=== PATIENT | female | born 1975 ===

== ENCOUNTER 2020-09-01 08:02 | Outpatient (REF) | payer OTHER, SELFPAY ==
--- NOTE | 2020-09-01 08:08 | MM_ITS ---
EXAMINATION: MM SCREENING DIGITAL BREAST TOMOSYNTHESIS, BILATERAL CLINICAL INFORMATION: Screening. Asymptomatic. The lifetime risk of breast cancer based on the Tyrer-Cuzick Model is 15.1%. COMPARISON: Mammography: August 30, 2019 and studies dating back to July 21, 2015 TECHNIQUE: Digital breast tomosynthesis is performed in both the craniocaudal and mediolateral oblique views along with computer-aided detection (CAD). Synthesized 2D images are generated from the tomosynthesis. FINDINGS: There are scattered areas of fibroglandular density (ACR BI-RADS breast composition Category b). There are no significant masses, abnormal calcifications, or other abnormalities. IMPRESSION: There are no significant changes from prior study. ASSESSMENT: BI-RADS 1: Negative RECOMMENDATION: Routine annual mammography screening. This patient's information was entered into a reminder system with a target due date for their next mammogram.
== END 2020-09-01 08:03 | disposition home or self-care (01) ==
LOC: HO.MAMMO 08:02
PROVIDERS: PCP Internal Medicine; Visit Provider Internal Medicine
DX: Z12.31 Encounter for screening mammogram for malignant neoplasm of breast (principal)
CPT/HCPCS: 77063; 77067

== ENCOUNTER 2020-11-27 08:12 | Outpatient (REF) | payer OTHER, SELFPAY ==
--- NOTE | 2020-11-27 08:37 | XR_ITS ---
EXAMINATION: XR SHOULDER, RIGHT CLINICAL INFORMATION: No clinical history provided. COMPARISON: None TECHNIQUE: AP external rotation, Grashey, scapular Y, and axillary views of the right shoulder. FINDINGS: There are moderate degenerative changes at the right acromioclavicular joint with prominent marginal osteophytosis. Small subchondral cysts are noted. Normal alignment is maintained. No other abnormality. Alignment of the glenohumeral joint is normal. No soft tissue abnormality is demonstrated. XR/XR shoulder RT min 2V IMPRESSION: Moderate degenerative changes right acromioclavicular joint. No other abnormality.
[2020-11-27 08:44] LABS: MANUAL DIFF FLAG NO
[2020-11-27 08:48] LABS: Basophils Percent Auto 0.6 % (0-2); Eosinophils Absolute Auto 0.1 X10*3/uL (0.0-0.4); Eosinophils Percent Auto 2.9 % (0-4); Hematocrit 39.4 % (37-47); Hemoglobin 12.3 g/dl (12.0-16.0); Imm Gran Abs Auto 0.02 X10*3/uL (0.00-0.03); Imm Gran Pct Auto 0.4 % (0.0-0.4); Lymphocytes Absolute Auto 1.4 X10*3/uL (1.2-4.9); Lymphocytes Percent Auto 28.1 % (20-40); Mean Corpuscular HGB Conc 31.2 g/dl (31.0-35.0); Mean Corpuscular Hemoglobin 27.6 pg (27.0-33.0); Mean Corpuscular Volume 88.5 fL (80-98); Mean Platelet Volume 10.5 fL (9.4-12.3); Monocytes Absolute Auto 0.4 X10*3/uL (0.1-1.2); Monocytes Percent Auto 7.2 % (2-11); Neutrophils Percent Auto 60.8 % (45-73); Platelet Count 262 X10*3/uL (160-400); Red Blood Count 4.45 X10*6/uL (4.20-5.50); Red Cell Distribution Width 12.6 % (11.0-16.0); White Blood Count 4.9 X10*3/uL (4.8-10.8)
[2020-11-27 09:24] LABS: Alanine Aminotransferase 16 U/L (0-31); Albumin Level 4.2 g/dL (3.5-5.0); Alkaline Phosphatase 81 U/L (39-117); Anion Gap 11 (12-20); Aspartate Amino Transferase 14 U/L (5-31); Bilirubin Total 0.5 mg/dL (0.0-1.0); Blood Urea Nitrogen 18 mg/dL (9-16); Calcium 8.6 mg/dL (8.4-10.2); Carbon Dioxide 26 mmol/L (22-29); Chloride 106 mmol/L (96-108); Cholesterol 200 mg/dL; Estimated Glomerular Filt Rate > 60; Glucose Random 93 mg/dL (60-115); HDL Cholesterol 53 mg/dL; LDL Cholesterol Calculated 135 mg/dl; Potassium 4.6 mmol/l (3.3-5.1); Sodium 138 mmol/L (135-145); Total Protein 6.6 g/dL (6.5-8.0); Triglycerides 63 mg/dL
[2020-11-27 09:45] LABS: Free T4 (Free Thyroxine) 0.77 ng/dL (0.71-1.85); Thyroid Stimulating Hormone 6.93 uIU/mL (0.32-4.0); Vitamin D 25-OH Total 16.3 ng/mL (>30)
[2020-11-27 10:31] LABS: Folate 9.5 ng/mL (> or = 4.0); Vitamin B12 321 pg/mL (200-900)
== END 2020-11-27 08:13 | disposition home or self-care (01) ==
LOC: HO.LAB 08:12
PROVIDERS: PCP Internal Medicine; Visit Provider Internal Medicine
DX: G43.909 Migraine, unspecified, not intractable, without status migrainosus (principal); E78.00 Pure hypercholesterolemia, unspecified; E03.9 Hypothyroidism, unspecified
CPT/HCPCS: 36415; 73030; 80053; 80061; 82306; 82607; 82746; 84439; 84443; 85025

== ENCOUNTER → 2021-01-28 08:51 | Outpatient (BNVA) | payer OTHER, SELFPAY | PROVIDERS: PCP Internal Medicine; Visit Provider Advanced Practice Midwife ==

== ENCOUNTER 2021-09-12 07:17 | Outpatient (REF) | payer OTHER, SELFPAY ==
--- NOTE | ~2021-09-12 | MM_ITS ---
EXAMINATION: MM SCREENING DIGITAL BREAST TOMOSYNTHESIS, BILATERAL CLINICAL INFORMATION: Screening. Asymptomatic. The lifetime risk of breast cancer based on the Tyrer-Cuzick Model is 16%. COMPARISON: Mammography: 09/01/2020, 08/30/2019, 08/24/2018 TECHNIQUE: Digital breast tomosynthesis is performed in both the craniocaudal and mediolateral oblique views along with computer-aided detection (CAD). Synthesized 2D images are generated from the tomosynthesis. FINDINGS: There are scattered areas of fibroglandular density (ACR BI-RADS breast composition Category b). There are no significant masses, abnormal calcifications, or other abnormalities. Parenchymal pattern is similar to prior studies. No developing density. No significant changes. MM/MM tomosynthesis screening BI IMPRESSION: No mammographic evidence of malignancy. ASSESSMENT: BI-RADS 1: Negative RECOMMENDATION: Routine annual mammography screening. This patient's information was entered into a reminder system with a target due date for their next mammogram.
== END 2021-09-12 07:18 | disposition home or self-care (01) ==
LOC: HO.MAMMO 07:17
PROVIDERS: Visit Provider Internal Medicine
DX: Z12.31 Encounter for screening mammogram for malignant neoplasm of breast (principal)
CPT/HCPCS: 77063; 77067

== ENCOUNTER → 2022-01-19 13:52 | Outpatient (BNVA) | payer OTHER, SELFPAY | PROVIDERS: PCP Internal Medicine; Referring Provider Internal Medicine; Visit Provider Nurse Practitioner ==

== ENCOUNTER 2022-02-03 14:52 | Outpatient (REF) | payer OTHER, SELFPAY ==
[2022-02-04 11:11] LABS: BV Int Neg Control Negative (Negative); BV Int Pos Control Positive (Positive)
[2022-02-04 13:09] LABS: CT PCR NOT DETECTED (Not Detect.); NG PCR NOT DETECTED (Not Detect.)
[2022-02-09 05:46] LABS: HPV 16 RNA NOT DETECTED (NOT DETECTED); HPV mRNA E6/E7 rflx Detected (Not Detected)
== END 2022-02-03 14:53 | disposition home or self-care (01) ==
LOC: HO.LAB 14:52
PROVIDERS: Visit Provider Advanced Practice Midwife
DX: Z01.411 Encounter for gynecological examination (general) (routine) with abnormal findings (principal); N93.9 Abnormal uterine and vaginal bleeding, unspecified; N92.0 Excessive and frequent menstruation with regular cycle; Z20.2 Contact with and (suspected) exposure to infections with a predominantly sexual mode of transmission
CPT/HCPCS: 87480; 87491; 87510; 87591; 87624; 87625; 87660; 88142

== ENCOUNTER 2022-02-17 15:25 | Outpatient (REF) | payer OTHER, SELFPAY ==
--- NOTE | ~2022-02-17 | US_ITS ---
EXAMINATION: US PELVIS CLINICAL INFORMATION: Excessive and frequent menses. COMPARISON: Pelvic ultrasound 07/19/2018. TECHNIQUE: Ultrasound of the pelvis is performed using both transabdominal and transvaginal transducers along with Doppler. Transvaginal imaging is performed due to inadequate visualization transabdominally. FINDINGS: UTERUS: The uterus is anteverted and measures 8.4 x 4.9 x 5.8 cm. The double wall endometrial thickness is 1.2 cm. Of note, there is a hyperechoic oval-shaped mass in the endometrial cavity measuring 1.1 x 1.0 x 1.2 cm, which is new compared to the prior study and may represent a polyp. The uterus is smooth in contour and has normal myometrial echogenicity. No visible fibroid. Nabothian cysts are present in the cervix. ADNEXA: Both ovaries are visualized. There is normal color flow to the adnexa. There is no ovarian torsion. There is no pelvic ascites or fluid collection. Right ovary measures 3.1 x 1.5 x 1.5 cm for a volume of 3.8 mL and appears normal. Left ovary measures 3.5 x 2.0 x 3.6 cm for a volume of 13 mL and contains a small benign-appearing cyst measuring 1.5 x 1.6 x 2.1 cm. US/US pelvic and transvaginal IMPRESSION: Polypoid mass in the endocervical canal measuring 1.2 cm. This could be confirmed with either hysterosonography or hysteroscopy. This is new when compared to the prior ultrasound from 07/19/2018.
== END 2022-02-17 15:26 | disposition home or self-care (01) ==
LOC: HO.HMGCX 15:25
PROVIDERS: PCP Internal Medicine; Visit Provider Advanced Practice Midwife
DX: N92.0 Excessive and frequent menstruation with regular cycle (principal)
CPT/HCPCS: 76830; 76856

== ENCOUNTER 2022-02-25 07:04 | Outpatient (REF) | payer OTHER, SELFPAY ==
[2022-02-25 08:02] LABS: Hematocrit 40.8 % (37.0-47.0); Mean Corpuscular HGB Conc 31.9 g/dl (31.0-35.0); Mean Corpuscular Hemoglobin 27.5 pg (27.0-33.0); Mean Corpuscular Volume 86.4 fL (80.0-98.0); Mean Platelet Volume 11.4 fL (9.4-12.3); Platelet Count 307 X10*3/uL (160-400); Red Blood Count 4.72 X10*6/uL (4.20-5.50); Red Cell Distribution Width 13.1 % (11.0-16.0); White Blood Count 5.7 X10*3/uL (4.8-10.8)
[2022-02-25 08:22] LABS: Alanine Aminotransferase 15 U/L (0-31); Albumin Level 4.5 g/dL (3.5-5.0); Alkaline Phosphatase 89 U/L (39-117); Anion Gap 13 (12-20); Aspartate Amino Transferase 18 U/L (5-31); Bilirubin Total 1.3 mg/dL (0.0-1.0); Blood Urea Nitrogen 15 mg/dL (9-16); C Reactive Protein 0.67 mg/dL (< or = 0.50); Calcium 9.6 mg/dL (8.4-10.2); Carbon Dioxide 23 mmol/L (22-29); Chloride 107 mmol/L (96-108); Cholesterol 182 mg/dL; Estimated Glomerular Filt Rate 55; Glucose Random 102 mg/dL (60-115); HDL Cholesterol 45 mg/dL; LDL Cholesterol Calculated 129 mg/dl; Potassium 4.4 mmol/L (3.3-5.1); Sodium 139 mmol/L (135-145); Total Protein 7.4 g/dL (6.5-8.0); Triglycerides 43 mg/dL
[2022-02-25 08:39] LABS: MANUAL DIFF FLAG NO
[2022-02-25 08:41] LABS: Basophils Percent Auto 0.7 % (0-2); Eosinophils Absolute Auto 0.1 X10*3/uL (0.0-0.4); Eosinophils Percent Auto 2.1 % (0-4); Free T4 (Free Thyroxine) 0.95 ng/dL (0.71-1.85); Hematocrit 40.8 % (37.0-47.0); Hemoglobin 12.9 g/dl (12.0-16.0); Imm Gran Abs Auto 0.02 X10*3/uL (0.00-0.03); Imm Gran Pct Auto 0.4 % (0.0-0.4); Lymphocytes Absolute Auto 1.2 X10*3/uL (1.2-4.9); Lymphocytes Percent Auto 20.6 % (20-40); Mean Corpuscular HGB Conc 31.6 g/dl (31.0-35.0); Mean Corpuscular Hemoglobin 27.1 pg (27.0-33.0); Mean Corpuscular Volume 85.7 fL (80.0-98.0); Mean Platelet Volume 11.6 fL (9.4-12.3); Monocytes Absolute Auto 0.5 X10*3/uL (0.1-1.2); Monocytes Percent Auto 8.2 % (2-11); Neutrophils Absolute Auto 3.8 x10*3/uL (2.0-8.3); Platelet Count 310 X10*3/uL (160-400); Red Blood Count 4.76 X10*6/uL (4.20-5.50); Thyroid Stimulating Hormone 3.66 uIU/mL (0.32-4.0); White Blood Count 5.6 X10*3/uL (4.8-10.8)
[2022-02-25 08:44] LABS: TSH reflex Free T4 3.75 uIU/mL (0.32-4.0)
[2022-02-25 08:45] LABS: Erythrocyte Sedimentation Rate 8 MM/HR (0-20)
[2022-02-25 10:12] LABS: Vitamin D 25-OH Total 23.8 ng/mL (>30)
[2022-02-27 08:56] LABS: Folate 18.9 ng/mL (> or = 4.0); Vitamin B12 741 pg/mL (200-900)
== END 2022-02-25 07:05 | disposition home or self-care (01) ==
LOC: HO.LAB 07:04
PROVIDERS: Absent Provider Internal Medicine; PCP Internal Medicine; Visit Provider Advanced Practice Midwife
DX: N92.0 Excessive and frequent menstruation with regular cycle (principal); G43.909 Migraine, unspecified, not intractable, without status migrainosus; E78.00 Pure hypercholesterolemia, unspecified
CPT/HCPCS: 36415; 80053; 80061; 82306; 82607; 82746; 84439; 84443; 85025; 85027; 85652; 86140

== ENCOUNTER → 2022-03-03 15:54 | Outpatient (BNVA) | payer OTHER, SELFPAY | PROVIDERS: Visit Provider Advanced Practice Midwife | DX: Z13.89 Encounter for screening for other disorder (principal) ==

== ENCOUNTER 2022-03-10 13:50 | Outpatient (REF) | payer OTHER, SELFPAY ==
[2022-03-17 03:36] LABS: HPV 16 RNA NOT DETECTED (NOT DETECTED); HPV mRNA E6/E7 rflx Detected (Not Detected)
== END 2022-03-10 13:51 | disposition home or self-care (01) ==
LOC: HO.LAB 13:50
PROVIDERS: PCP Internal Medicine; Visit Provider Advanced Practice Midwife
DX: Z01.411 Encounter for gynecological examination (general) (routine) with abnormal findings (principal); Z11.51 Encounter for screening for human papillomavirus (HPV); N92.0 Excessive and frequent menstruation with regular cycle; N84.1 Polyp of cervix uteri; Z71.2 Person consulting for explanation of examination or test findings
CPT/HCPCS: 81025; 87624; 87625; 88142

== ENCOUNTER → 2022-04-05 15:34 | Outpatient (BNVA) | payer OTHER, SELFPAY | PROVIDERS: PCP Internal Medicine; Visit Provider Obstetrics & Gynecology | DX: N93.9 Abnormal uterine and vaginal bleeding, unspecified (principal) ==

== ENCOUNTER 2022-04-12 14:19 | Outpatient (REF) | payer OTHER, SELFPAY | END 2022-04-12 14:20 | disposition home or self-care (01) | LOC: HO.LAB 14:19 | PROVIDERS: PCP Internal Medicine; Visit Provider Obstetrics & Gynecology | DX: R87.810 Cervical high risk human papillomavirus (HPV) DNA test positive (principal); Z32.02 Encounter for pregnancy test, result negative | CPT/HCPCS: 57454; 81025; 88305; 88342; 88360 ==

== ENCOUNTER → 2022-04-18 15:20 | Outpatient (BNVA) | payer OTHER, SELFPAY | PROVIDERS: PCP Internal Medicine; Visit Provider Obstetrics & Gynecology | DX: N93.9 Abnormal uterine and vaginal bleeding, unspecified (principal) ==

== ENCOUNTER 2022-05-05 06:29 | Day surgery (SDC) | payer OTHER, SELFPAY ==
[2022-04-26 19:06] VITALS: BMI 33.6
--- NOTE | 2022-05-03 14:07 | HO.ANESPROP2 ---
HPI - Anesthesia Eval Consult details Narrative: 46yo F for D&C Hysteroscopy,poss polypectomy/myomectomy and leep, PMFSH Active Problems Active Problems: All Active Problems (Updated 04/18/22 @ 18:17 by Gordon Ordoñez MD) REN III (cervical intraepithelial neoplasia grade III) with severe dysplasia (Acute) Cervical high risk HPV (human papillomavirus) test positive (Acute) Abnormal uterine bleeding (Acute) Ear congestion (Acute) Allergic reaction (Acute) Colon cancer screening (Acute) Shoulder pain, right (Acute) Migraine (Acute) Annual physical exam (Acute) Obesity (BMI 30-39.9) (Acute) Hypothyroid (Acute) Hypercholesterolemia (Acute) GERD (gastroesophageal reflux disease) (Acute) Past Medical History Medical History BRCA negative GERD (gastroesophageal reflux disease) HPV test positive Hypercholesterolemia Hypothyroid Insomnia Migraine Obesity (BMI 30-39.9) Polycystic kidney disease Vitamin D deficiency Family History Family History Father Cancer Diabetes Hypertension Mother Kidney disease Hypertension Breast cancer, Onset Age: 70 Sister Colon cancer Maternal Aunt Breast cancer Kidney disease Throat cancer Gastric cancer Surgical History Surgical History No pertinent past surgical history Social History Social History Housing: Apartment Alcohol intake: never Patient Tobacco Use Status: Never used Tobacco e-Cigarette/Vaping Use: Never Used Second Hand Smoke Exposure: No Current occupational status: employed Meds Allergies Allergy/AdvReac Type Severity Reaction Status Date / Time bee pollen [BEE STINGS] Allergy Severe ANAPHYLAXIS Verified 04/18/22 15:31 kiwi [KIWI] Allergy Intermediate HIVES Verified 04/18/22 15:31 Exam Exam Date and Time: May 03, 2022 1407 Height,Weight and Vital Signs: Height 5 ft 4 in Weight 88.904 kg Pertinent Lab Results Pertinent Lab Results: Laboratory Tests 02/25/22 02/25/22 07:17 07:17 WBC 5.6 Hgb 12.9 Hct 40.8 Plt Count 310 Sodium 139 Potassium 4.4 Chloride 107 Carbon Dioxide 23 BUN 15 Creatinine 1.08 Assessment and Plan Assessment Anesthesia Assessment: Chart Reviewed
[2022-05-05] VITALS (9 sets, daily range): BP systolic 130–178; BP diastolic 69–102; PULSE 53–76; RESP 10–18; TEMP 36.6–36.8; O2SAT 96–100
[2022-05-05 06:55] LABS: UPreg QC Valid YES; Urine Pregnancy NEGATIVE (NEGATIVE)
[2022-05-05] MEDS: Lactated Ringers 1,000 ML 100 ML IVCONT (07:01)
--- NOTE | 2022-05-05 07:14 | P.CONAN_ITS ---
[facility] Active Problems Active Problems: All Active Problems (Updated 04/18/22 @ 18:17 by Gordon Ordoñez MD) Migraine (Acute) GERD (gastroesophageal reflux disease) (Acute) Hypercholesterolemia (Acute) Hypothyroid (Acute) Obesity (BMI 30-39.9) (Acute) Annual physical exam (Acute) Shoulder pain, right (Acute) Colon cancer screening (Acute) Allergic reaction (Acute) Ear congestion (Acute) Abnormal uterine bleeding (Acute) Cervical high risk HPV (human papillomavirus) test positive (Acute) REN III (cervical intraepithelial neoplasia grade III) with severe dysplasia (Acute) Past Medical History Medical History BRCA negative HPV test positive Insomnia Polycystic kidney disease Vitamin D deficiency Patient : No Family History Family History Father Cancer Diabetes Hypertension Mother Kidney disease Hypertension Breast cancer, Onset Age: 70 Sister Colon cancer Maternal Aunt Breast cancer Kidney disease Throat cancer Gastric cancer Family history of problems with anesthesia: No Surgical History Surgical History (Updated 05/05/22 @ 06:52 by Beckie Turner RN) Hx of colonoscopy No pertinent past surgical history History of Problems with Anesthesia: No Social History Social History Housing: Apartment Alcohol intake: never Patient Tobacco Use Status: Never used Tobacco e-Cigarette/Vaping Use: Never Used Second Hand Smoke Exposure: No Use of substances other than those prescribed or required for medical reasons: No Are you DNR?: No Advance Directives: No Advance Directives Information Provided: No Advance Directives on File: No Recently lost weight without trying: No Nutrition Risks: No Nutritional Risk Current occupational status: employed Meds Allergies Allergy/AdvReac Type Severity Reaction Status Date / Time bee pollen [BEE STINGS] Allergy Severe ANAPHYLAXIS Verified 04/18/22 15:31 kiwi [KIWI] Allergy Intermediate HIVES Verified 04/18/22 15:31 Active Medications: Current Medications Lactated Ringer's (Lr) 1,000 mls @ 100 mls/hr IVCONT .Q10H KARINA Last Admin: 05/05/22 07:01 Dose: 100 mls/hr Exam Exam Date and Time: May 05, 2022 0714 Height,Weight and Vital Signs: Height 5 ft 4 in Weight 88.904 kg Pertinent Lab Results Pertinent Lab Results: Laboratory Tests 05/05/22 06:30 Urine Test NEGATIVE Airway Mallampati Class: II TM Dist: >3cm Neck ROM: Full Assessment and Plan Final Anesthetic Review Family History of Problems with Anesthesia: No History of Problems with Anesthesia: No NPO: Yes Final Preanesthetic Review: No Changes in Pt Med Stat, Meds/Allgs Chart Review ed, Consent Obtained/Reviewed and Anes Risks/Benef Reviewed Anesthetic Plan Anesthetic Plan: GA Disposition: Standard PACU
--- NOTE | 2022-05-05 07:37 | MHC.SHP ---
Pre-Procedural Eval Section A Date of Service: 05/05/22 The patient is an INPATIENT: No Changes since office visit: No Cold of Flu in the past 2 weeks, No New Medical Problems, No Changes in Medication and No Patient answered all questions The History & Physical has been completed within 30 days and I have reviewed it.: Yes Section B Chief Complaint: Carcinoma in situ of cervix,abnormal uterine Allergies: Allergies Allergy/AdvReac Type Severity Reaction Status Date / Time bee pollen [BEE STINGS] Allergy Severe ANAPHYLAXIS Verified 04/18/22 15:31 kiwi [KIWI] Allergy Intermediate HIVES Verified 04/18/22 15:31 Plan Diagnosis/Plan: Unchanged I have reviewed the history and physical and performed a pertinent physical examination on my patient. No changes have occurred unless specified.
--- NOTE | 2022-05-05 07:54 | PC.NURSE ---
patient feeling calmer. most recent bp 147/98
--- NOTE | 2022-05-05 09:13 | PM.OP ---
Brief Operative Note Date of Service: 05/05/22 Pre-op diagnosis: Abnormal uterine bleeding, REN 2-3 Post-op diagnosis: same Procedure: Hysteroscopy D&C, LEEP CONE with post CONE ECC Surgeon: Gordon Ordoñez MD Anesthesia: local and other (Paracervical block) Was an Videotape Sales Representative used for this Procedure?: No Estimated blood loss (mL): 0 Pathology: other ( cervical conewith 06:00 o'clock suture+post deeper Cerv lip, Endocx, Post cone ECC) Condition: stable Disposition: other (Home)
--- NOTE | 2022-05-05 09:15 | W.PM.OPN ---
Operative Note Operative Note Date of Service: 05/05/22 Narrative: Preop diagnosis: Abnormal uterine bleeding, REN 2-3 Operation: hysteroscopy D&C, LEEP Cone with post cone ECC Post op diagnosis: same Anesthesia: mac Complications: none Pathology: cervical cone with 06:00 o'clock sutureand Posterior deeper cervical lip with endocervix & post cone ECC QBL: minimal Procedure: The patient was put in a dorsal lithotomy position. The cervix is assessed using the colposcope with acetic acid , the lesions were seen, and at least 1 cm of the squamocolumnar junction was observed. 25 x 15 mm size loop was selected based upon the diameter of the lesion. Lugol solution was used to outline the lesions and area of the transformation zone order to be removed 10 cc of xylocaine with epinephrine were injected submucosally into the surface of the cervix (ectocervix) at the 3, 6, 9, and 12 o'clock positions. The electrosurgical generator is set at 30 to 40 eng on blend 1. The loop is carefully passed simultaneously around and under the transformation zone, in order to ensure excising it making sure the lesion is at least 5 mm far from the specimen margins . The loop was allowed to glide through the cervix from one side to the other, allowing the cutting current to divide the tissue. Since the lesion is at 04:00 o'clock, a deeper 2nd pass of the posterior cervical lip was excised & an endo cervical excision was performed next. An endo cervical curettage is performed following completion of excision, and hemostasis is obtained with a Ball electrode or regular tip cautery. Next, the anterior lip of the cervix was grasped with a single tooth tenaculum. The cervix was dilated up to 5 mm, then the scope was inserted in the patient's uterus. Inspection revealed normal uterine cavity, the scope was pulled out next from the patient's uterine cavity, this was followed by sharp curettings with moderate amount of tissues retrieved. At the end of the procedure, all instruments were taken out of the patient uterine and vaginal cavity. The single tooth tenaculum was removed and homeostasis was assured using pressure. Monsel's solution was applied to the cone bed. The patient tolerated the procedure well and was transferred to the PACU in a stable condition. All instruments were taken out of the patient's vaginal cavity. the patient tolerated the procedure well and was discharged home with the following instructions: call if temperature is above 100.4, vaginal bleeding, abdominal pain or nausea or vomiting. Follow-up in the office in 2 weeks for postop visit
[2022-05-05] MEDS: oxyCODONE HCl Immed Release 5 MG TABLET PO (09:59)
== END 2022-05-05 11:17 | disposition home or self-care (01) ==
PROVIDERS: Nurse Practitioner; PCP Internal Medicine; Visit Provider Obstetrics & Gynecology
PROC: 0UDB8ZZ Extraction of Endometrium, Via Natural or Artificial Opening Endoscopic (ICD-10-PCS; CPT 58558; principal; 2022-05-05 08:30)
DX: D06.9 Carcinoma in situ of cervix, unspecified (principal); N93.9 Abnormal uterine and vaginal bleeding, unspecified; R87.810 Cervical high risk human papillomavirus (HPV) DNA test positive; Q61.3 Polycystic kidney, unspecified; E03.9 Hypothyroidism, unspecified; E55.9 Vitamin D deficiency, unspecified; G43.909 Migraine, unspecified, not intractable, without status migrainosus; G47.00 Insomnia, unspecified; E66.9 Obesity, unspecified; Z68.37 Body mass index [BMI] 37.0-37.9, adult; Z79.899 Other long term (current) drug therapy
CPT/HCPCS: 57461; 81025; 88305; 88307; 88341; 88342; 88360; J1100; J1885; J2250; J2405; J3010

== ENCOUNTER 2022-09-20 07:19 | Outpatient (REF) | payer OTHER, SELFPAY ==
--- NOTE | ~2022-09-20 | MM_ITS ---
EXAMINATION: MM SCREENING DIGITAL BREAST TOMOSYNTHESIS, BILATERAL CLINICAL INFORMATION: Screening. Asymptomatic. Family history breast cancer, mother. COMPARISON: Mammography: 09/12/2021, 09/01/2020, 08/30/2019 TECHNIQUE: Digital breast tomosynthesis is performed in both the craniocaudal and mediolateral oblique views along with computer-aided detection (CAD). Synthesized 2D images are generated from the tomosynthesis. FINDINGS: There are scattered areas of fibroglandular density (ACR BI-RADS breast composition Category b). Parenchymal pattern is similar to prior studies and there is no interval mass or architectural abnormality or developing density. The axilla and skin contours are unremarkable. No abnormal calcifications on the right. Left breast has fine grouped calcifications anterior 12:30 representing change from prior studies. Patient will be recalled for additional magnification views. MM/MM tomosynthesis screening BI IMPRESSION: Left: -Fine grouped calcifications anterior 12:30. Right: -No mammographic evidence of malignancy. ASSESSMENT: BI-RADS 0: Incomplete - Need Additional Imaging Evaluation RECOMMENDATION: 1. Additional views of the left breast (magnification CC, magnification ML). 2. Radiology department staff will contact the patient for additional imaging. This patient's information was entered into a reminder system with a target due date for their next mammogram.
== END 2022-09-20 07:20 | disposition home or self-care (01) ==
LOC: HO.MAMMO 07:19
PROVIDERS: PCP Internal Medicine; Visit Provider Internal Medicine
DX: Z12.31 Encounter for screening mammogram for malignant neoplasm of breast (principal)
CPT/HCPCS: 77063; 77067

== ENCOUNTER 2022-09-22 08:16 | Outpatient (REF) | payer OTHER, SELFPAY ==
--- NOTE | ~2022-09-22 | MM_ITS ---
EXAMINATION: MM DIAGNOSTIC DIGITAL MAMMOGRAPHY, LEFT CLINICAL INFORMATION: Calcifications. COMPARISON: Mammography: 09/20/2022 and studies dating back to 07/21/2015. TECHNIQUE: Digital mammography was performed in the following views: Spot magnification views in craniocaudal and 90 degree mediolateral views. FINDINGS: There are scattered areas of fibroglandular density (ACR BI-RADS breast composition Category b). Calcifications within the superior aspect of the left breast approximately 5 cm from the nipple are indeterminate in appearance. Recommend stereotactic core biopsy of these calcifications. Results are discussed with the patient at time of visit. MM/MM added views LT IMPRESSION: Indeterminate calcifications of the left breast for which stereotactic core biopsy is recommended. ASSESSMENT: BI-RADS 4: Suspicious RECOMMENDATION: Stereotactic core biopsy left breast. This patient's information was entered into a reminder system with a target due date for their next mammogram. Report called to Milagro at the referring provider's office.
== END 2022-09-22 08:17 | disposition home or self-care (01) ==
LOC: HO.MAMMO 08:16
PROVIDERS: PCP Internal Medicine; Visit Provider Internal Medicine
DX: R92.1 Mammographic calcification found on diagnostic imaging of breast (principal)
CPT/HCPCS: 77065

== ENCOUNTER 2022-09-27 09:29 | Outpatient (REF) | payer OTHER, SELFPAY ==
--- NOTE | ~2022-09-27 | MM_ITS ---
EXAMINATION: STEREOTACTIC TOMOSYNTHESIS-GUIDED VACUUM-ASSISTED BREAST BIOPSY, LEFT SPECIMEN RADIOGRAPH, LEFT POST PROCEDURE DIGITAL MAMMOGRAM, LEFT CLINICAL INFORMATION: Calcifications anterior upper left breast for stereotactic sampling. Family history breast cancer, mother. COMPARISON: Mammography 09/22/2022, 09/20/2022. TECHNIQUE/PROCEDURE: Informed consent was obtained from the patient after discussion of the benefits, risks, and alternatives to biopsy today. Patient appeared to understand. Gave opportunity for questions. Patient signed consent form. BIOPSY TABLE: Xquva Affirm Prone Biopsy System. LESION: Grouped calcifications anterior upper left breast. LOCAL ANESTHESIA: 8 mL carbonated 1% lidocaine; 10 mL 2% lidocaine with epinephrine. DERMATOTOMY: Single skin tierney dermatotomy performed. NEEDLE: Purkinjeiva 9-gauge vacuum assisted core biopsy device. APPROACH: Craniocaudal. TARGETING: Combination of digital breast tomosynthesis and stereotactic digital mammography used for targeting. CORES: 5. CLIP: Rail [employer] T-shaped marker. SPECIMEN RADIOGRAPH: Specimen radiograph is taken in separate room using digital mammography. The index calcifications are in the excised cores. There are at least 5 calcifications grouped in one of the cores. POST PROCEDURE UNILATERAL DIGITAL MAMMOGRAM: The post biopsy mammogram is performed in separate room using separate digital mammography equipment from the biopsy procedure. CC and ML views are obtained. There are scattered areas of fibroglandular density (breast composition category: b). The clip marker is in position. The calcifications are markedly decreased at the biopsy site and no longer clearly visualized. No gross hematoma. The patient tolerated the procedure well. No immediate complications. Home instructions reviewed with the patient. Final pathology results are pending. MM/MM stereotactic biopsy LT IMPRESSION: 1. Digital tomosynthesis-guided core biopsy left breast with clip placement. 2. Specimen radiograph taken and post procedure mammogram. There is satisfactory positioning of the biopsy clip. 3. Final pathology results pending. An addendum report will be issued.
[2022-09-27] MEDS: Lidocaine HCl 1 % 20 ML VIAL 9 ML SUBCUT (10:47)
[2022-09-27] MEDS: Sodium Bicarbonate 8.4% 50 MEQ/50 ML VIAL SUBCUT (10:50)
[2022-09-27] MEDS: Lidocaine HCl 2%/Epi 1:100,000 20 ML VIAL 10 ML INFILTRATI (10:53)
== END 2022-09-27 09:30 | disposition home or self-care (01) ==
LOC: HO.MAMMO 09:29
PROVIDERS: PCP Internal Medicine; Visit Provider Surgery
DX: R92.1 Mammographic calcification found on diagnostic imaging of breast (principal)
CPT/HCPCS: 19081; 88305; A4648

== ENCOUNTER 2023-02-09 15:07 | Outpatient (REF) | payer OTHER, SELFPAY ==
[2023-02-10 05:24] LABS: CT PCR NOT DETECTED (Not Detect.); NG PCR NOT DETECTED (Not Detect.)
[2023-02-14 05:19] LABS: HPV mRNA E6/E7 rflx Not Detected (Not Detected)
== END 2023-02-09 15:08 | disposition home or self-care (01) ==
LOC: HO.LNP 15:07
PROVIDERS: PCP Internal Medicine; Visit Provider Advanced Practice Midwife
DX: Z01.419 Encounter for gynecological examination (general) (routine) without abnormal findings (principal); Z11.51 Encounter for screening for human papillomavirus (HPV); Z20.2 Contact with and (suspected) exposure to infections with a predominantly sexual mode of transmission; D06.9 Carcinoma in situ of cervix, unspecified
CPT/HCPCS: 0353U; 87624; 88142

== ENCOUNTER → 2023-03-07 07:42 | Outpatient (BNVA) | payer OTHER, SELFPAY | PROVIDERS: PCP Internal Medicine; Visit Provider Advanced Practice Midwife | DX: Z13.89 Encounter for screening for other disorder (principal) ==

== ENCOUNTER 2023-03-08 13:31 | Outpatient (REF) | payer OTHER, SELFPAY | END 2023-03-08 13:32 | disposition home or self-care (01) | LOC: HO.LAB 13:31 | PROVIDERS: PCP Internal Medicine; Visit Provider Advanced Practice Midwife | DX: Z30.09 Encounter for other general counseling and advice on contraception (principal); R87.619 Unspecified abnormal cytological findings in specimens from cervix uteri; Z87.42 Personal history of other diseases of the female genital tract | CPT/HCPCS: 58100; 81025; 88305 ==

== ENCOUNTER → 2023-03-16 07:44 | Outpatient (BNVA) | payer OTHER, SELFPAY | PROVIDERS: PCP Internal Medicine; Visit Provider Advanced Practice Midwife ==

== ENCOUNTER 2023-08-18 07:16 | Outpatient (REF) | payer OTHER, SELFPAY | END 2023-08-18 07:17 | disposition home or self-care (01) | LOC: HO.LAB 07:16 | PROVIDERS: PCP Internal Medicine; Visit Provider Internal Medicine | DX: E03.9 Hypothyroidism, unspecified (principal); E78.00 Pure hypercholesterolemia, unspecified; E55.9 Vitamin D deficiency, unspecified | CPT/HCPCS: 36415; 80053; 80061; 82306; 82607; 82746; 84439; 84443; 85025 ==

== ENCOUNTER 2023-09-27 07:25 | Outpatient (REF) | payer OTHER, SELFPAY ==
--- NOTE | ~2023-09-27 | MM_ITS ---
EXAMINATION: MM SCREENING DIGITAL BREAST TOMOSYNTHESIS, BILATERAL CLINICAL INFORMATION: Screening. Asymptomatic. COMPARISON: Mammography: 09/20/2022, 09/12/2021, 09/01/2020, 08/30/2019, 08/24/2018 TECHNIQUE: Digital breast tomosynthesis is performed in both the craniocaudal and mediolateral oblique views along with computer-aided detection (CAD). Synthesized 2D images are generated from the tomosynthesis. FINDINGS: There are scattered areas of fibroglandular density (ACR BI-RADS breast composition Category b). Post benign biopsy clip upper outer left breast anterior one third. There are no suspicious masses, suspicious grouped calcifications, or areas of architectural distortion in either breast. The parenchymal pattern is stable from prior exams. MM/MM tomosynthesis screening BI IMPRESSION: No mammographic evidence of malignancy. Stable benign findings. ASSESSMENT: BI-RADS BI-RADS 2 - Benign Findings RECOMMENDATION: Routine annual mammography screening. 1 year F/U This examination should not preclude the clinical evaluation of a suspicious palpable abnormality. This patient's information was entered into a reminder system with a target due date for their next mammogram.
== END 2023-09-27 07:26 | disposition home or self-care (01) ==
LOC: HO.MAMMO 07:25
PROVIDERS: PCP Internal Medicine; Visit Provider Internal Medicine
DX: Z12.31 Encounter for screening mammogram for malignant neoplasm of breast (principal)
CPT/HCPCS: 77063; 77067

== ENCOUNTER → 2023-09-27 07:30 | Outpatient (BNV) | payer OTHER, SELFPAY | PROVIDERS: PCP Internal Medicine; Visit Provider Radiology Diagnostic Radiology | DX: Z12.31 Encounter for screening mammogram for malignant neoplasm of breast (principal) | CPT/HCPCS: 77063; 77067 ==

== ENCOUNTER 2023-11-30 14:47 | Outpatient (AMB) | payer OTHER, SELFPAY ==
--- NOTE | 2023-11-30 14:59 | MHC.PC.OV ---
Vital Signs 11/30/23 15:04 Height 5 ft 4 in Weight 196 lb 6 oz BMI 33.7 BP 158/102 H Blood Pressure Location Lt brachial Position Sitting Pulse 74 Pulse Source Pulse Oximeter Pulse Oximetry (%) 98 Oxygen Delivery Method Room Air Intake Visit Reasons: Annual Exam Intake Note: Patient is here today for a physical. Towel Sorter Required: No Accompanied by: Self / Same As Patient Allergies bee pollen [BEE STINGS] Allergy (Severe, Verified 11/30/23 15:05) ANAPHYLAXIS kiwi [KIWI] Allergy (Intermediate, Verified 11/30/23 15:05) HIVES Medication List - Last Reconciled 11/30/23 by Jay Fregoso MD [email or web address] extract mg PO blood pressure monitor (Blood Pressure Kit) As directed epinephrine (EpiPen 2-Mukul) 0.3 mg (0.3 mL) IM Q4H PRN 90 days hydrochlorothiazide 12.5 mg PO QAM levothyroxine 25 mcg PO DAILY multivitamin 1 tab PO DAILY peg 3350-electrolytes 236-22.74-6.74 -5.86 gram (Golytely) 240 mL PO Q10M 1 day sumatriptan succinate (Imitrex) 50 mg PO QD PRN; Tobacco use date assessed: 11/30/23 Dental Screening Dental Screen Date: 11/30/23 Did you have a dental visit in the last 12 months?: No Did you have a dental problem in the last 6 months where you did not have access to dental care?: No Was dental information given to patient?: No (No Dental Insurance ) HPI Annual Exam HPI Details 48-year-old obese female with hypothyroidism hypercholesterolemia GERD migraine coming in for physical exam last seen in November last year. Concern about an elevated blood pressure. Patient's colonoscopy is due mammogram is January 2023. [facility] Medical History (Updated 11/30/23 @ 19:07 by Jay Fregoso MD) Unexplained endometrial cells on cervical cytology Heavy menstrual bleeding Abnormal Pap smear of cervix Family history of breast cancer Breast calcification, left BRCA negative Obesity (BMI 30-39.9) Hypothyroid Hypercholesterolemia Insomnia GERD (gastroesophageal reflux disease) HPV test positive Vitamin D deficiency Polycystic kidney disease Migraine Surgical History Hx of dilation and curettage Hx of colonoscopy Family History Father Cancer Diabetes Hypertension Mother Kidney disease Hypertension Breast cancer, Onset Age: 70 Sister Colon cancer, Onset Age: 40 Maternal Aunt Breast cancer Kidney disease Throat cancer Gastric cancer Maternal Aunt Breast cancer Social History Household Members: Significant Other Housing: House Alcohol intake: never Patient Tobacco Use Status: Never used Tobacco e-Cigarette/Vaping Use: Never Used Second Hand Smoke Exposure: No service: No Current occupational status: employed Current occupation: [email or web address] Sexual orientation: Straight/Heterosexual Gender identity: Female Cognitive needs: No Hearing needs: No Vision needs: Yes Female Reproductive History Menstrual Age of Menarche: 12 Questionnaire PHQ-9 Over the last 2 weeks, how often have you been bothered by any of the following problems? 1. Little interest or pleasure in doing things: not at all 2. Feeling down, depressed, or hopeless: not at all 3. Trouble falling or staying asleep, or sleeping too much: not at all 4. Feeling tired or having little energy: not at all 5. Poor appetite or overeating: not at all 6. Feeling bad about yourself - or that you are a failure or have let yourself or your family down: not at all 7. Trouble concentrating on things, such as reading the newspaper or watching television: not at all 8. Moving or speaking so slowly that other people could have noticed. Or the opposite - being so fidgety or restless that you have been moving around a lot more than usual: not at all 9. Thoughts that you would be better off or of hurting yourself in some way: not at all Total score: 0 Depression Screening Interpretation: Negative Depression Screening Done: Yes 18850 - PHQ-9 Billing: Yes Source: Developed by Drs. Chris Denis, Alley Ayala, John Ramirez and colleagues, with an educational lebron from [employer]. Thrive Questionnaire Date Thrive assessed: 11/30/23 I am a: Patient What is your living situation today?: I have a steady place to live Within the past 12 months, did the food you bought not last and you didn't have the money to get more?: Never true Within the past 12 months, did you worry whether your food would run out before you got money to buy more?: Never true Do you have trouble paying for medicines?: No Do you have trouble getting transportation to medical appointments?: No Do you have trouble paying your heating and electricity bill?: No Do you have trouble taking care of your child, family member or friend?: No Do you have trouble with day-to-day activities such as bathing, preparing meals, shopping, managing finances, etc.?: No Are you currently unemployed and looking for a job?: No Are you interested in more education?: No Please select the resources that you would like help with: None Currently or been in a relationship where the following occur: no concerns reported THRIVE Score: 0 AUDIT C Alcohol Use Questionnaire (AUDIT-C) 1. How often do you have a drink containing alcohol?: Monthly or less 2. How many drinks containing alcohol do you have on a typical day when you are drinking?: 1 or 2 3. How often do you have six or more drinks on one occasion?: Never Total Score: 1 GAURANG-7 AMB Questionnaire GAURANG-7 Date GAURANG - 7 assessed: 11/30/23 Feeling nervous, anxious, or on edge: 0 = Not at all Not being able to stop or control worryin = Not at all Worrying too much about different things: 0 = Not at all Trouble relaxin = Not at all Being so restless that it is hard to sit still: 0 = Not at all Becoming easily annoyed or irritable: 0 = Not at all Feeling afraid as if something awful might happen: 0 = Not at all Total GAURANG-7 score (0-4 normal; 5-9 mild; 10-14 moderate; 15-21 severe): 0 Source: Developed by Drs. Chris Denis, Alley Ayala, John Ramirez and colleagues, with an educational lebron from [employer]. GAURANG-7 Assessment Billing GAURANG-7 Assessment Tool: GAURANG-7 Assessment 57719 Review of Systems Const Denies poor appetite and Denies weakness Eyes Denies no additional complaints ENT Reports Normal hearing present, Denies dizziness, Denies nasal congestion, Denies tinnitus and Denies sore throat Card Denies chest pain, Denies syncope, Denies rapid heart rate and Denies dyspnea Resp Denies cough and Denies dyspnea GI Denies change in stool character, Reports constipation, Denies diarrhea, Denies nausea and Denies vomiting Denies urinary frequency, Denies difficulty voiding and Denies dysuria Neuro Reports Normal hearing present, Denies confusion, Denies dizziness, Denies syncope and Denies weakness Psych Denies confusion Physical exam (Primary Care) Vital Signs: Last Vital Signs Pulse 74 11/30/23 15:04 BP 158/102 H 11/30/23 15:04 Pulse Ox 98 11/30/23 15:04 Oxygen Delivery Method Room Air 11/30/23 15:04 BMI result Body Mass Index 33.7 Tobacco/Smoking Status: Tobacco use Status Tobacco use date assessed 11/30/23 11/30/23 15:18 Patient Tobacco Use Status Never used Tobacco 11/30/23 14:59 e-Cigarette/Vaping Use Never Used 11/30/23 14:59 PHQ-9: PHQ-9 Score PHQ-9: Total score 0 11/30/23 19:07 Depression Screening Interpretation: Negative Thrive Assessment: Date of Thrive Assessment Date Thrive assessed 11/30/23 11/30/23 15:18 Currently or been in a relationship where the following occur: no concerns reported Const General: No confusion Orientation/consciousness: No confusion HENMT Head: Yes normocephalic Ears: external ears normal and TM's normal bilaterally Face and sinus: Yes normal facial exam Mouth: moist mucous membranes Throat: Yes tonsils normal Eyes Conjunctivae: conjunctivae normal Pupils: Equal, round and reactive pupils present and Pupil accommodation reflex normal Direct Ophthalmoscopy: normal light reflex Neck Neck: No lymphadenopathy Thyroid: Thyroid normal Chest Chest palpation & inspection: normal inspection of the chest Resp Effort & Inspection: normal respiratory effort and no audible wheezes Auscultation: clear to auscultation bilaterally, no crackles, no wheezes and lung sounds not diminished Cardio Rate: regular rate Rhythm: regular rhythm Peripheral pulses: radial pulses present and dorsalis pedis present GI Palpation (GI): no masses Auscultation: normal bowel sounds and normoactive bowel sounds Rectal Exam - Female: deferred Skin General skin exam: no rashes or lesions noted Rashes: no rashes Neuro General: No confusion Cranial nerves: Yes Equal, round and reactive pupils present and Yes Normal hearing present Cognition (Neuro): normal cognition Gait exam (Neuro): Normal gait present Motor exam (neuro): 5 motor strength present throughout Deep tendon reflexes (DTR's): Right brachioradialis reflex intensity grade: 2+, Left brachioradialis reflex intensity grade: 2+, Right patellar reflex intensity grade: 2+ and Left patellar reflex intensity grade: 2+ Extrem General: No edema Office Procedures Flu Questionnaire Does the patient have a severe egg allergy?: No Does the patient have severe life threatening allergies?: No Does the patient have a fever or illness today?: No Has the patient ever had Guillain-[place] Syndrome?: No Has the patient ever had any past reaction to a flu shot?: No Immunizations flu vacc [id number] 6mos up(PF) 60 mcg(15 mcgx4)/0.5 mL IM syringe Performing Provider: Jay Fregoso MD [facility] Administered by: JAMISON Luis on 11/30/23 15:22 Dose Route Admin Location Dispensed Lot Number Expiration Date NDC Works Manager 0.5 mL IM Left Deltoid 0.5 mL [id number] 05/11/24 52550-920-91 [employer] VIS Given Date VIS Provided VIS Publication Date 11/30/23 Single Vaccine 21 Eligibility Eligibility Date Funding Source Not [facility] Eligible 11/30/23 Private Assessment and Plan Assessment & Plan (1) Annual physical exam: Code(s): Z00.00 - Encounter for general adult medical examination without abnormal findings Plan: Eat healthy, keep active and keep well hydrated (2) Colon cancer screening: Code(s): Z12.11 - Encounter for screening for malignant neoplasm of colon Plan: Patient is reminded about colonoscopy (3) Hypertension: Code(s): I10 - Essential (primary) hypertension Qualifiers: Hypertension type: primary hypertension Qualified Code(s): I10 - Essential (primary) hypertension Plan: Concern about the elevated blood pressure (4) Obesity (BMI 30-39.9): Code(s): E66.9 - Obesity, unspecified Plan: Diet and exercise (5) Hypothyroid: Code(s): E03.9 - Hypothyroidism, unspecified Qualifiers: Hypothyroidism type: acquired Qualified Code(s): E03.9 - Hypothyroidism, unspecified Plan: Continue with thyroid medication and retest (6) Hypercholesterolemia: Code(s): E78.00 - Pure hypercholesterolemia, unspecified Plan: Avoid fried foods, chicken skin, eggs, butter margarine, pastries and meat. Be it pork or beef they have a lot of cholesterol LDL goal of less than 130 and triglyceride of less than 150 (7) GERD (gastroesophageal reflux disease): Code(s): K21.9 - Gastro-esophageal reflux disease without esophagitis Qualifiers: Esophagitis presence: without esophagitis Qualified Code(s): K21.9 - Gastro-esophageal reflux disease without esophagitis Plan: Avoid the foods that causes that usually spicy foods, tomato products, juices, coffee, soda and foods that your sensitive to. After eating do not lie down, allow 3-4 hours before in lie down. And keep the head of bed above 30 degrees to avoid the acid from going up. Orders: Orders Influenza [id number] Immunization Today Z23 - Encounter for immunization Thyroid Stimulating Hormone Today E78.00 - Pure hypercholesterolemia, unspecified Vitamin D 25-OH Total Today E78.00 - Pure hypercholesterolemia, unspecified Lipid Panel Today E78.00 - Pure hypercholesterolemia, unspecified Complete Blood Count Auto Diff Today E78.00 - Pure hypercholesterolemia, unspecified Comprehensive Met. Panel Today E78.00 - Pure hypercholesterolemia, unspecified Free T4 (Free Thyroxine) Today E78.00 - Pure hypercholesterolemia, unspecified Vitamin B12 and Folate Today E78.00 - Pure hypercholesterolemia, unspecified Medications: New hydrochlorothiazide 12.5 mg PO QAM 30 tabs 4RF I10 - Essential (primary) hypertension Refilled levothyroxine 25 mcg PO DAILY 90 tabs 2RF E03.9 - Hypothyroidism, unspecified epinephrine (EpiPen 2-Mukul) 0.3 mg (0.3 mL) IM Q4H PRN 2 ea 0RF anaphylaxis 90 days T78.40XA - Allergy, unspecified, initial encounter Coding Level of Care Code Est Pt Prev Care 40-64y(49838) Diagnoses Annual physical exam Z00.00 Colon cancer screening Z12.11 Primary hypertension I10 Hypertension type: primary hypertension Obesity (BMI 30-39.9) E66.9 Acquired hypothyroidism E03.9 Hypothyroidism type: acquired Hypercholesterolemia E78.00 Gastroesophageal reflux disease without esophagitis K21.9 Esophagitis presence: without esophagitis Additional Codes GAURANG-7 Assessment Billing - GAURANG-7 Assessment Tool: GAURANG-7 Assessment 84907 ([id number])
[2023-11-30 15:04] VITALS: BP 158/102; PULSE 74; O2SAT 98; BMI 33.7
== END 2023-11-30 15:48 | disposition home or self-care (01) ==
PROVIDERS: Visit Provider Internal Medicine
DX: Z00.00 Encounter for general adult medical examination without abnormal findings (principal); E66.9 Obesity, unspecified; Z68.33 Body mass index [BMI] 33.0-33.9, adult; Z23 Encounter for immunization; I10 Essential (primary) hypertension; E78.00 Pure hypercholesterolemia, unspecified; E03.9 Hypothyroidism, unspecified; K21.9 Gastro-esophageal reflux disease without esophagitis
CPT/HCPCS: 90471; 90686; 99396

== ENCOUNTER 2024-01-26 08:12 | Outpatient (REF) | payer OTHER, SELFPAY ==
[2024-01-26 08:26] LABS: MANUAL DIFF FLAG NO
[2024-01-26 09:16] LABS: Basophils Percent Auto 0.4 % (0-2); Eosinophils Absolute Auto 0.1 X10*3/uL (0.0-0.4); Eosinophils Percent Auto 1.6 % (0-4); Hematocrit 41.4 % (37.0-47.0); Hemoglobin 13.2 g/dl (12.0-16.0); Imm Gran Abs Auto 0.02 X10*3/uL (0.00-0.03); Imm Gran Pct Auto 0.4 % (0.0-0.4); Lymphocytes Absolute Auto 1.5 X10*3/uL (1.2-4.9); Lymphocytes Percent Auto 27.8 % (20-40); Mean Corpuscular HGB Conc 31.9 g/dl (31.0-35.0); Mean Corpuscular Hemoglobin 27.6 pg (27.0-33.0); Mean Corpuscular Volume 86.6 fL (80.0-98.0); Mean Platelet Volume 11.1 fL (9.4-12.3); Monocytes Absolute Auto 0.5 X10*3/uL (0.1-1.2); Monocytes Percent Auto 9.4 % (2-11); Neutrophils Absolute Auto 3.3 x10*3/uL (2.0-8.3); Neutrophils Percent Auto 60.4 % (45-73); Platelet Count 303 X10*3/uL (160-400); Red Blood Count 4.78 X10*6/uL (4.20-5.50); Red Cell Distribution Width 13.2 % (11.0-16.0); White Blood Count 5.5 X10*3/uL (4.8-10.8)
[2024-01-26 09:52] LABS: Alanine Aminotransferase 21 U/L (0-31); Albumin Level 4.3 g/dL (3.5-5.0); Alkaline Phosphatase 70 U/L (39-117); Anion Gap 11 (12-20); Aspartate Amino Transferase 21 U/L (5-31); Bilirubin Total 0.7 mg/dL (0.0-1.0); Blood Urea Nitrogen 17 mg/dL (9-16); Calcium 9.7 mg/dL (8.4-10.2); Carbon Dioxide 27 mmol/L (22-29); Chloride 107 mmol/L (96-108); Cholesterol 164 mg/dL (<200); Estimated Glomerular Filt Rate 54; Glucose Random 91 mg/dL (60-115); HDL Cholesterol 47 mg/dL (>40); LDL Cholesterol Calculated 107 mg/dL (<100); Potassium 4.2 mmol/L (3.3-5.1); Sodium 141 mmol/L (135-145); Total Protein 7.2 g/dL (6.5-8.0); Triglycerides 52 mg/dL (<150)
[2024-01-26 10:11] LABS: Free T4 (Free Thyroxine) 0.82 ng/dL (0.71-1.85); Thyroid Stimulating Hormone 3.17 uIU/mL (0.32-4.0); Vitamin D 25-OH Total 45.3 ng/mL (>30)
[2024-01-26 10:15] LABS: Folate 15.8 ng/mL (> or = 4.0); Vitamin B12 884 pg/mL (200-900)
== END 2024-01-26 08:13 | disposition home or self-care (01) ==
LOC: HO.LAB 08:12
PROVIDERS: PCP Internal Medicine; Visit Provider Internal Medicine
DX: E78.00 Pure hypercholesterolemia, unspecified (principal)
CPT/HCPCS: 36415; 80053; 80061; 82306; 82607; 82746; 84439; 84443; 85025

== ENCOUNTER 2024-02-01 14:12 | Outpatient (AMB) | payer OTHER, SELFPAY ==
--- NOTE | 2024-02-01 14:16 | A.OFFPC_ITS ---
Vital Signs 02/01/24 14:18 Height 5 ft 4 in Weight 193 lb 4 oz BMI 33.2 BP 130/90 H Blood Pressure Location Lt brachial Position Sitting Pulse 78 Pulse Source Pulse Oximeter Pulse Oximetry (%) 98 Oxygen Delivery Method Room Air Intake Visit Reasons: Hypertension Intake Note: Patient is here to follow up on HTN. Sustainability Project Coordinator Required: No Safety Security Officer: Not Required per policy Accompanied by: Self / Same As Patient Allergies bee pollen [BEE STINGS] Allergy (Severe, Verified 02/01/24 14:17) ANAPHYLAXIS kiwi [KIWI] Allergy (Intermediate, Verified 02/01/24 14:17) HIVES Medication List - Last Reconciled 02/01/24 by Jay Fregoso MD [email or web address] extract mg PO blood pressure monitor (Blood Pressure Kit) As directed epinephrine (EpiPen 2-Mukul) 0.3 mg (0.3 mL) IM Q4H PRN 90 days levothyroxine 25 mcg PO DAILY lisinopril-hydrochlorothiazide 10-12.5 mg 1 tab PO DAILY multivitamin 1 tab PO DAILY peg 3350-electrolytes 236-22.74-6.74 -5.86 gram (Golytely) 240 mL PO Q10M 1 day sumatriptan succinate (Imitrex) 50 mg PO QD PRN; Tobacco use date assessed: 02/01/24 Dental Screening Dental Screen Date: 02/01/24 Did you have a dental visit in the last 12 months?: No Did you have a dental problem in the last 6 months where you did not have access to dental care?: No Was dental information given to patient?: No HPI Hypertension HPI Details 48-year-old obese female with a history of hypertension hypothyroidism hypercholesterolemia GERD last seen in November 2023. Patient was referred for colon testing. Function being low GFR advised to increase oral fluids and with blood pressure diastolic hypertension will add to the medication. [facility] Medical History (Updated 11/30/23 @ 19:07 by Jay Fregoso MD) Unexplained endometrial cells on cervical cytology Heavy menstrual bleeding Abnormal Pap smear of cervix Family history of breast cancer Breast calcification, left BRCA negative Obesity (BMI 30-39.9) Hypothyroid Hypercholesterolemia Insomnia GERD (gastroesophageal reflux disease) HPV test positive Vitamin D deficiency Polycystic kidney disease Migraine Surgical History Hx of dilation and curettage Hx of colonoscopy Family History (Updated 02/01/24 @ 14:16 by FELIX Page) Father Cancer Diabetes Hypertension Mother Kidney disease Hypertension Breast cancer, Onset Age: 70 Sister Colon cancer, Onset Age: 40 Maternal Aunt Breast cancer Kidney disease Throat cancer Gastric cancer Maternal Aunt Breast cancer Social History Household Members: Significant Other Housing: House Alcohol intake: never Patient Tobacco Use Status: Never used Tobacco e-Cigarette/Vaping Use: Never Used Second Hand Smoke Exposure: No service: No Current occupational status: employed Current occupation: [employer] Sexual orientation: Straight/Heterosexual Gender identity: Female Cognitive needs: No Hearing needs: No Vision needs: Yes Female Reproductive History Menstrual Age of Menarche: 12 Questionnaire Thrive Questionnaire Date Thrive assessed: 11/30/23 GAURANG-7 AMB Questionnaire GAURANG-7 Date GAURANG - 7 assessed: 11/30/23 Source: Developed by Drs. hCris Denis, Alley Ayala, John Ramirez and colleagues, with an educational lebron from [employer]. Physical exam (Primary Care) Vital Signs: Last Vital Signs Pulse 78 02/01/24 14:18 BP 130/90 H 02/01/24 14:18 Pulse Ox 98 02/01/24 14:18 Oxygen Delivery Method Room Air 02/01/24 14:18 BMI result Body Mass Index 33.2 Tobacco/Smoking Status: Tobacco use Status Tobacco use date assessed 02/01/24 02/01/24 14:25 Patient Tobacco Use Status Never used Tobacco 02/01/24 14:25 e-Cigarette/Vaping Use Never Used 02/01/24 14:25 Thrive Assessment: Date of Thrive Assessment Date Thrive assessed 11/30/23 02/01/24 14:25 Const General: alert; No acute distress Eyes Conjunctivae: conjunctivae normal Resp Auscultation: clear to auscultation bilaterally Cardio Rate: regular rate Rhythm: regular rhythm GI Inspection: Yes normal to inspection Extrem General: Yes normal to inspection and No edema Assessment and Plan Assessment & Plan (1) Hypertension: Code(s): I10 - Essential (primary) hypertension Qualifiers: Hypertension type: primary hypertension Qualified Code(s): I10 - Essential (primary) hypertension Plan: Continue with blood pressure medication. Decrease salt intake and exercise patient on hydrochlorothiazide 12.5 mg once a day (2) GERD (gastroesophageal reflux disease): Code(s): K21.9 - Gastro-esophageal reflux disease without esophagitis Qualifiers: Esophagitis presence: without esophagitis Qualified Code(s): K21.9 - Gastro-esophageal reflux disease without esophagitis Plan: Avoid the foods that causes that usually spicy foods, tomato products, juices, coffee, soda and foods that your sensitive to. After eating do not lie down, allow 3-4 hours before in lie down. And keep the head of bed above 30 degrees to avoid the acid from going up. (3) Hypercholesterolemia: Code(s): E78.00 - Pure hypercholesterolemia, unspecified Plan: Avoid fried foods, chicken skin, eggs, butter margarine, pastries and meat. Be it pork or beef they have a lot of cholesterol LDL goal of less than 130 and triglyceride of less than 150. Repeat testing in January within normal limits. (4) Hypothyroid: Code(s): E03.9 - Hypothyroidism, unspecified Qualifiers: Hypothyroidism type: acquired Qualified Code(s): E03.9 - Hypothyroidism, unspecified Plan: Continue with thyroid medication (5) Obesity (BMI 30-39.9): Code(s): E66.9 - Obesity, unspecified Plan: Diet and exercise Orders: Orders Basic Metabolic Panel 3 Months I10 - Essential (primary) hypertension Medications: New lisinopril-hydrochlorothiazide 10-12.5 mg 1 tab PO DAILY 30 tabs 3RF I10 - Essential (primary) hypertension lisinopril-hydrochlorothiazide 10-12.5 mg 1 tab PO DAILY 30 tabs 3RF I10 - Essential (primary) hypertension Discontinued hydrochlorothiazide Discontinued Reason: Doctor's Order 12.5 mg PO QAM 30 tabs 4RF I10 - Essential (primary) hypertension Coding Level of Care Code Est Pt Level 4 (47505) Diagnoses Primary hypertension I10 Hypertension type: primary hypertension Gastroesophageal reflux disease without esophagitis K21.9 Esophagitis presence: without esophagitis Hypercholesterolemia E78.00 Acquired hypothyroidism E03.9 Hypothyroidism type: acquired Obesity (BMI 30-39.9) E66.9
[2024-02-01 14:18] VITALS: BP 130/90; PULSE 78; O2SAT 98; BMI 33.2
== END 2024-02-01 15:00 | disposition home or self-care (01) ==
PROVIDERS: PCP Internal Medicine; Visit Provider Internal Medicine
DX: I10 Essential (primary) hypertension (principal); E66.9 Obesity, unspecified; Z68.33 Body mass index [BMI] 33.0-33.9, adult; K21.9 Gastro-esophageal reflux disease without esophagitis; E78.00 Pure hypercholesterolemia, unspecified; E03.9 Hypothyroidism, unspecified
CPT/HCPCS: 99214

== ENCOUNTER 2024-02-15 14:55 | Outpatient (REF) | payer OTHER, SELFPAY ==
[2024-02-15 17:55] LABS: CT PCR NOT DETECTED (Not Detect.); NG PCR NOT DETECTED (Not Detect.)
[2024-02-16 14:50] LABS: BV Int Neg Control Negative (Negative); BV Int Pos Control Positive (Positive)
[2024-02-20 20:24] LABS: HPV mRNA E6/E7 rflx Not Detected (Not Detected)
== END 2024-02-15 14:56 | disposition home or self-care (01) ==
LOC: HO.LNP 14:55
PROVIDERS: PCP Internal Medicine; Visit Provider Advanced Practice Midwife
DX: Z01.419 Encounter for gynecological examination (general) (routine) without abnormal findings (principal); N94.6 Dysmenorrhea, unspecified; Z20.2 Contact with and (suspected) exposure to infections with a predominantly sexual mode of transmission
CPT/HCPCS: 0353U; 87480; 87510; 87624; 87660; 88142

== ENCOUNTER 2024-02-15 14:55 | Outpatient (AMB) | payer OTHER, SELFPAY ==
[2024-02-15 14:57] VITALS: BP 134/80; BMI 33.0
--- NOTE | 2024-02-15 14:57 | A.OFFVIS_ITS ---
Intake Vital Signs 02/15/24 14:57 Height 5 ft 4 in Weight 192 lb BMI 33.0 BP 134/80 Intake Visit Reasons: Annual/60 per BM Intake Note: no concerns Information Security Systems Instructor Required: No Information Interpreted: non-clinical & clinical Animal Shelter Clerk: Animal Shelter Clerk Present (Melissa WASHINGTON) Accompanied by: Self / Same As Patient Allergies bee pollen [BEE STINGS] Allergy (Severe, Verified 02/15/24 15:01) ANAPHYLAXIS kiwi [KIWI] Allergy (Intermediate, Verified 02/15/24 15:01) HIVES Is last menstrual period known: Yes Last menstrual period: 02/03/24 HPI HPI Comments History of Present Illness Details She is a premenopausal woman presenting for annual examination. Doing well with no concerns. She tries to eat healthy and stays active with exercise. Regular monthly menses x3d, painful x2. Unable to take ibuprofen due to her renal concerns. Currently is sexually active. She denies vaginal itching and irritation. STI screening offered; she accepts. Denies family history of breast, ovarian or colon cancer. Last pap smear 2022, negative, 1st post LEEP Pap. Mammogram: Up-to-date. [facility] Medical History Unexplained endometrial cells on cervical cytology Heavy menstrual bleeding Abnormal Pap smear of cervix Family history of breast cancer Breast calcification, left BRCA negative Obesity (BMI 30-39.9) Hypothyroid Hypercholesterolemia Insomnia GERD (gastroesophageal reflux disease) HPV test positive Vitamin D deficiency Polycystic kidney disease Migraine Surgical History Hx of dilation and curettage Hx of colonoscopy Family History Father Cancer Diabetes Hypertension Mother Kidney disease Hypertension Breast cancer, Onset Age: 70 Sister Colon cancer, Onset Age: 40 Maternal Aunt Breast cancer Kidney disease Throat cancer Gastric cancer Maternal Aunt Breast cancer Social History Household Members: Significant Other Housing: House Alcohol intake: never Patient Tobacco Use Status: Never used Tobacco e-Cigarette/Vaping Use: Never Used Second Hand Smoke Exposure: No service: No Current occupational status: employed Current occupation: [employer] Sexual orientation: Straight/Heterosexual Gender identity: Female Cognitive needs: No Hearing needs: No Vision needs: Yes Female Reproductive History Menstrual Age of Menarche: 12 Duration of menses: 3-5 days Date of last menstrual period: 02/03/24 Total pregnancies: 2 Full term: 1 Number of Living Children: 1 Date of last pap smear: 02/12/23 Date of Mammogram: 09/27/23 Review of Systems Const All systems reviewed & are unremarkable except as noted in HPI and below Reports as per HPI Eyes Reports no additional complaints ENT Reports no additional complaints Card Reports no additional complaints Resp Reports no additional complaints GI Reports as per HPI and Reports no additional complaints Reports as per HPI Musc Reports no additional complaints Skin/Breast Reports as per HPI Neuro Reports no additional complaints Psych Reports no additional complaints Endo Reports no additional complaints Corye/Lymph Reports no additional complaints Aller/Immun Reports no additional complaints Physical Exam Vital Signs: Last Vital Signs BP 134/80 02/15/24 14:57 BMI result Body Mass Index 33.0 Const General: cooperative, healthy appearing, no acute distress, well developed and alert Orientation/consciousness: patient oriented x3 HEENT Head: Yes normal to inspection Eyes General: appearance normal, both eyes and all related structures Neck Neck: Yes normal visual inspection Thyroid: Thyroid normal Chest Chest palpation & inspection: normal inspection of the chest and other (no puckering, dimpling, peau de orange, retraction, discharge, masses) Breast/axilla inspection: normal inspection of the breasts Breast/axilla palpation: normal palpation of the breasts Resp Effort & Inspection: normal respiratory effort GI Inspection: Yes normal to inspection Palpation (GI): Soft to palpation Rectal Exam - Female: deferred General: Yes bladder normal to palpation External Female Exam: normal external appearance and normal appearance of the urethra Speculum Exam - Vagina: normal appearance of the vagina, normal palpation and normal vaginal discharge Speculum Exam - Cervix: normal appearance of the cervix, normal palpation and Other cervical findings present (bled readily with Pap) Bimanual exam- vagina & uterus: normal bimanual exam, normal palpation, uterine size normal, bladder normal to palpation, normal palpation and non-tender Bimanual Exam- Adnexa, other: no masses Skin General skin exam: no rashes or lesions noted Rashes: no rashes Neuro General: patient oriented x3 Cognition (Neuro): normal cognition Extrem General: Yes normal to inspection Psych Attitude: cooperative Thought process: Normal thought process present Assessment & Plan Assessment & Plan (1) Encounter for well woman exam with routine gynecological exam: Code(s): Z01.419 - Encounter for gynecological examination (general) (routine) without abnormal findings (2) Dysmenorrhea: Code(s): N94.6 - Dysmenorrhea, unspecified Plan Discussed: Current recommendations for pap smears per ASCCP guidelines. Pap today. BV and GC chlamydia due to dysmenorrhea. Breast awareness and periodic breast exams. Maintain a healthy lifestyle including a well balanced diet and routine exercise. Patient declines control at this time. Use Tylenol and a heating pad for her monthly cycle cramping. Discussed perimenopausal changes and menopause diagnosis, no menses after 12 months. Advised to call if bleeding is heavier prolonged, or if she has bleeding intervals less than 3 weeks apart. Mammogram yearly. Patient verbalizes understanding and agrees to the plan of care. She was given opportunity to ask questions and all questions were answered to the best of my ability. RTO in one year for annual casing puller examination. This note is constructed using voice recognition software. While every effort has been made to ensure accuracy, nurse coordinator errors may have been included. Coding Level of Care Code Est Pt Prev Care 40-64y(68763) Diagnoses Encounter for well woman exam with routine gynecological exam Z01.419 Dysmenorrhea N94.6
== END 2024-02-15 15:33 | disposition home or self-care (01) ==
LOC: HO.HWS 14:55
PROVIDERS: PCP Internal Medicine; Visit Provider Advanced Practice Midwife
DX: Z01.419 Encounter for gynecological examination (general) (routine) without abnormal findings (principal); N94.6 Dysmenorrhea, unspecified
CPT/HCPCS: 99396

== ENCOUNTER 2024-05-07 10:25 | Outpatient (REF) | payer OTHER, SELFPAY ==
[2024-05-09 17:03] LABS: HPV mRNA E6/E7 Not Detected (Not Detected)
== END 2024-05-07 10:26 | disposition home or self-care (01) ==
LOC: HO.LNP 10:25
PROVIDERS: PCP Internal Medicine; Visit Provider Advanced Practice Midwife
DX: Z01.419 Encounter for gynecological examination (general) (routine) without abnormal findings (principal); Z11.51 Encounter for screening for human papillomavirus (HPV)
CPT/HCPCS: 87624; 88175

== ENCOUNTER 2024-05-07 10:25 | Outpatient (AMB) | payer OTHER, SELFPAY ==
[2024-05-07 10:34] VITALS: BP 122/64
--- NOTE | 2024-05-07 10:34 | A.OFFVIS_ITS ---
Vital Signs 05/07/24 10:34 Weight 190 lb 2 oz BP 122/64 Blood Pressure Location Lt radial Position Sitting Intake Visit Reasons: repeat pap Intake Note: Annual, no questions, no concerns. Allergies bee pollen [BEE STINGS] Allergy (Severe, Verified 02/15/24 15:01) ANAPHYLAXIS kiwi [KIWI] Allergy (Intermediate, Verified 02/15/24 15:01) HIVES Is last menstrual period known: Yes Last menstrual period: 04/23/24 Post menopausal: Yes Patient : No HPI Comments Details: Patient is here today for a repeat Pap smear due to history of last Pap being unsatisfactory. History of LEEP. She reports regular cycles, denies any itching or irritation or pelvic pain. Admits to not using any contraception and reports I'm just brodie . [facility] Medical History Unexplained endometrial cells on cervical cytology Heavy menstrual bleeding Abnormal Pap smear of cervix Family history of breast cancer Breast calcification, left BRCA negative Obesity (BMI 30-39.9) Hypothyroid Hypercholesterolemia Insomnia GERD (gastroesophageal reflux disease) HPV test positive Vitamin D deficiency Polycystic kidney disease Migraine Surgical History Hx of dilation and curettage Hx of colonoscopy Family History Father Cancer Diabetes Hypertension Mother Kidney disease Hypertension Breast cancer, Onset Age: 70 Sister Colon cancer, Onset Age: 40 Maternal Aunt Breast cancer Kidney disease Throat cancer Gastric cancer Maternal Aunt Breast cancer Social History Household Members: Significant Other Housing: House Alcohol intake: never Patient Tobacco Use Status: Never used Tobacco e-Cigarette/Vaping Use: Never Used Second Hand Smoke Exposure: No Patient : No service: No Current occupational status: employed Current occupation: [employer] Sexual orientation: Straight/Heterosexual Gender identity: Female Cognitive needs: No Hearing needs: No Vision needs: Yes Female Reproductive History Menstrual Age of Menarche: 12 Date of last menstrual period: 04/23/24 Review of Systems Const All systems reviewed & are unremarkable except as noted in HPI and below Physical Exam Vital Signs: Last Vital Signs BP 122/64 05/07/24 10:34 Const General: cooperative, healthy appearing and no acute distress Orientation/consciousness: patient oriented x3 GI Inspection: Yes normal to inspection Palpation (GI): Soft to palpation and Other GI palpation findings present (Nontender) Rectal Exam - Female: visual inspection normal General: Yes bladder normal to palpation External Female Exam: normal appearance of the urethra Speculum Exam - Vagina: normal appearance of the vagina, normal palpation and normal vaginal discharge Speculum Exam - Cervix: normal appearance of the cervix, normal palpation and Other cervical findings present (Post LEEP appearance, bled slightly with Pap) Bimanual exam- vagina & uterus: normal bimanual exam, normal palpation, uterine size normal, bladder normal to palpation, normal palpation, uterine shape normal and non-tender Bimanual Exam- Adnexa, other: normal adnexae Neuro General: patient oriented x3 Assessment & Plan Assessment & Plan (1) Unsatisfactory cervical Papanicolaou smear: Code(s): R87.615 - Unsatisfactory cytologic smear of cervix Plan Await Pap results for plan of care, informed if in satisfactory again she will need a colposcopy. She has not interested in control, advised if her menses is late it could be an unplanned or perimenopausal changes due to hormonal fluctuations, advised to do a home test if late for her menses. She has a appointment scheduled for her annual February of 2025. All of her questions and concerns were addressed to the best of my ability and shared decision making. She is agreeable to the plan of care. This note is constructed using voice recognition software. While every effort has been made to ensure accuracy, engine generator assembler errors may have been included. Coding Level of Care Code Est Pt Level 3 (24197) Diagnoses Unsatisfactory cervical Papanicolaou smear R87.615
== END 2024-05-07 11:04 | disposition home or self-care (01) ==
PROVIDERS: PCP Internal Medicine; Visit Provider Advanced Practice Midwife
DX: R87.615 Unsatisfactory cytologic smear of cervix (principal)
CPT/HCPCS: 99213

== ENCOUNTER 2024-05-16 07:51 | Outpatient (REF) | payer OTHER, SELFPAY ==
[2024-05-16 09:09] LABS: Anion Gap 10 (12-20); Blood Urea Nitrogen 17 mg/dL (9-16); Calcium 9.2 mg/dL (8.4-10.2); Carbon Dioxide 27 mmol/L (22-29); Chloride 105 mmol/L (96-108); Estimated Glomerular Filt Rate > 60; Glucose Random 91 mg/dL (60-115); Potassium 4.3 mmol/L (3.3-5.1); Sodium 138 mmol/L (135-145)
[2024-05-16 09:28] LABS: Free T4 (Free Thyroxine) 0.91 ng/dL (0.71-1.85); Thyroid Stimulating Hormone 3.64 uIU/mL (0.32-4.0)
== END 2024-05-16 07:52 | disposition home or self-care (01) ==
LOC: HO.LAB 07:51
PROVIDERS: PCP Internal Medicine; Visit Provider Internal Medicine
DX: I10 Essential (primary) hypertension (principal); E03.9 Hypothyroidism, unspecified
CPT/HCPCS: 36415; 80048; 84439; 84443

== ENCOUNTER 2024-05-26 15:54 | Outpatient (AMB) | payer OTHER, SELFPAY ==
[2024-05-26 16:01] VITALS: BP 128/90; PULSE 75; O2SAT 98; BMI 32.8
--- NOTE | 2024-05-26 16:01 | A.OFFPC_ITS ---
Vital Signs 05/26/24 16:01 Height 5 ft 4 in Weight 191 lb 0.2 oz BMI 32.8 BP 128/90 H Blood Pressure Location Lt brachial Position Sitting Pulse 75 Pulse Source Pulse Oximeter Pulse Oximetry (%) 98 Oxygen Delivery Method Room Air Intake Visit Reasons: 3 Month F/U Circular Saw Filer Required: No Allergies bee pollen [BEE STINGS] Allergy (Severe, Verified 05/26/24 16:02) ANAPHYLAXIS kiwi [KIWI] Allergy (Intermediate, Verified 05/26/24 16:02) HIVES Medication List - Last Reconciled 05/26/24 by Jay Fregoso MD ashwagandha extract mg PO blood pressure monitor (Blood Pressure Kit) As directed epinephrine (EpiPen 2-Mukul) 0.3 mg (0.3 mL) IM Q4H PRN 90 days levothyroxine 25 mcg PO DAILY multivitamin 1 tab PO DAILY sumatriptan succinate (Imitrex) 50 mg PO QD PRN; Tobacco use date assessed: 02/01/24 Dental Screening Dental Screen Date: 02/01/24 HPI 3 Month F/U HPI Details 48-year-old obese female with hypertensi on GERD hypercholesterolemia hypothyroidism last seen in January 2024 patient is here for follow-up colonoscopy last done in 2013 and fit testing done November 2023-mammogram due Pap smear is up-to-date. BP at home has been good and has been low and so will discontinue med . dumbel fell R foot and 1 week - better now. Discussed that if the pain persists to let me know. As for the blood pressure patient has been complaining of orthostasis also and with this discussed with the patient to stop the medication and continue to monitor blood pressure. Patient also has been constipated and discussed about diet and liquid. [facility] Medical History (Updated 05/26/24 @ 16:44 by Jay Fregoso MD) Blood pressure elevated without history of HTN Unexplained endometrial cells on cervical cytology Heavy menstrual bleeding Abnormal Pap smear of cervix Family history of breast cancer Breast calcification, left BRCA negative Obesity (BMI 30-39.9) Hypothyroid Hypercholesterolemia Insomnia GERD (gastroesophageal reflux disease) HPV test positive Vitamin D deficiency Polycystic kidney disease Migraine Surgical History Hx of dilation and curettage Hx of colonoscopy Family History Father Cancer Diabetes Hypertension Mother Kidney disease Hypertension Breast cancer, Onset Age: 70 Sister Colon cancer, Onset Age: 40 Maternal Aunt Breast cancer Kidney disease Throat cancer Gastric cancer Maternal Aunt Breast cancer Social History Household Members: Significant Other Housing: House Alcohol intake: never Patient Tobacco Use Status: Never used Tobacco e-Cigarette/Vaping Use: Never Used Second Hand Smoke Exposure: No service: No Current occupational status: employed Current occupation: [employer] Sexual orientation: Straight/Heterosexual Gender identity: Female Cognitive needs: No Hearing needs: No Vision needs: Yes Female Reproductive History Menstrual Age of Menarche: 12 Questionnaire Thrive Questionnaire Date Thrive assessed: 11/30/23 AUDIT C Alcohol Use Questionnaire (AUDIT-C) 1. How often do you have a drink containing alcohol?: Monthly or less 2. How many drinks containing alcohol do you have on a typical day when you are drinking?: 1 or 2 3. How often do you have six or more drinks on one occasion?: Never Total Score: 1 GAURANG-7 AMB Questionnaire GAURANG-7 Date GAURANG - 7 assessed: 11/30/23 Source: Developed by Drs. Chris Denis, Alley Ayala, John Ramirez and colleagues, with an educational lebron from [employer]. Physical exam (Primary Care) Vital Signs: Last Vital Signs Pulse 75 05/26/24 16:01 BP 128/90 H 05/26/24 16:01 Pulse Ox 98 05/26/24 16:01 Oxygen Delivery Method Room Air 05/26/24 16:01 BMI result Body Mass Index 32.8 Tobacco/Smoking Status: Tobacco use Status Tobacco use date assessed 02/01/24 05/26/24 16:02 Patient Tobacco Use Status Never used Tobacco 05/26/24 16:02 e-Cigarette/Vaping Use Never Used 05/26/24 16:02 Thrive Assessment: Date of Thrive Assessment Date Thrive assessed 11/30/23 05/26/24 16:02 Const General: alert; No acute distress Eyes Conjunctivae: conjunctivae normal Resp Auscultation: clear to auscultation bilaterally Cardio Rate: regular rate Rhythm: regular rhythm GI Inspection: Yes normal to inspection Extrem General: Yes normal to inspection and No edema Assessment and Plan Assessment & Plan (1) Hypertension: Code(s): I10 - Essential (primary) hypertension Qualifiers: Hypertension type: primary hypertension Qualified Code(s): I10 - Essential (primary) hypertension Plan: Continue with blood pressure medication. Decrease salt intake and exercise lisinopril hydrochlorothiazide 10/12.5 mg once a day . Concern on low BP at home - will D/C med and monitor. (2) Colon cancer screening: Code(s): Z12.11 - Encounter for screening for malignant neoplasm of colon Plan: Discussed about colon cancer screening. Patient will be contacting Gastroenterology (3) Obesity (BMI 30-39.9): Code(s): E66.9 - Obesity, unspecified Plan: Diet and exercise (4) Hypothyroid: Code(s): E03.9 - Hypothyroidism, unspecified Qualifiers: Hypothyroidism type: acquired Qualified Code(s): E03.9 - Hypothyroidism, unspecified Plan: Continue with thyroid medication blood work normal (5) Hypercholesterolemia: Code(s): E78.00 - Pure hypercholesterolemia, unspecified Plan: Avoid fried foods, chicken skin, eggs, butter margarine, pastries and meat. Be it pork or beef they have a lot of cholesterol this on repeat blood work has been normal (6) GERD (gastroesophageal reflux disease): Code(s): K21.9 - Gastro-esophageal reflux disease without esophagitis Qualifiers: Esophagitis presence: without esophagitis Qualified Code(s): K21.9 - Gastro-esophageal reflux disease without esophagitis Plan: Avoid the foods that causes that usually spicy foods, tomato products, juices, coffee, soda and foods that your sensitive to. After eating do not lie down, allow 3-4 hours before in lie down. And keep the head of bed above 30 degrees to avoid the acid from going up. (7) Migraine: Code(s): G43.909 - Migraine, unspecified, not intractable, without status migrainosus Plan: refill done on migraine med (8) Constipation: Code(s): K59.00 - Constipation, unspecified Plan: Three rules for constipation 1. Diet need to have a high fiber diet less of meat 2. Increase oral fluids 3. Exercise Medications: Refilled sumatriptan succinate (Imitrex) 50 mg PO QD PRN; 10 tabs 11RF migraine headache G43.909 - Migraine, unspecified, not intractable, without status migrainosus Discontinued lisinopril-hydrochlorothiazide 10-12.5 mg Discontinued Reason: Doctor's Order 1 tab PO DAILY 90 tabs 1RF I10 - Essential (primary) hypertension Coding Level of Care Code Est Pt Level 4 (01375) Diagnoses Primary hypertension I10 Hypertension type: primary hypertension Colon cancer screening Z12.11 Obesity (BMI 30-39.9) E66.9 Acquired hypothyroidism E03.9 Hypothyroidism type: acquired Hypercholesterolemia E78.00 Gastroesophageal reflux disease without esophagitis K21.9 Esophagitis presence: without esophagitis Migraine G43.909 Constipation K59.00
== END 2024-05-26 17:38 | disposition home or self-care (01) ==
PROVIDERS: PCP Internal Medicine; Visit Provider Internal Medicine
DX: I10 Essential (primary) hypertension (principal); Z12.11 Encounter for screening for malignant neoplasm of colon; E66.9 Obesity, unspecified; Z68.32 Body mass index [BMI] 32.0-32.9, adult; E03.9 Hypothyroidism, unspecified; E78.00 Pure hypercholesterolemia, unspecified; K21.9 Gastro-esophageal reflux disease without esophagitis; G43.909 Migraine, unspecified, not intractable, without status migrainosus; K59.00 Constipation, unspecified
CPT/HCPCS: 99214

== ENCOUNTER 2024-10-02 07:21 | Outpatient (REF) | payer OTHER, SELFPAY ==
--- NOTE | ~2024-10-02 | MM_ITS ---
EXAMINATION: MM SCREENING DIGITAL BREAST TOMOSYNTHESIS, BILATERAL CLINICAL INFORMATION: Screening. Asymptomatic. COMPARISON: Mammography: Comparison is made with available priors TECHNIQUE: Digital breast mammography with tomosynthesis is performed in both the craniocaudal and mediolateral oblique views along with computer-aided detection (CAD). FINDINGS: There are scattered areas of fibroglandular density (ACR BI-RADS breast composition Category b). There are no significant masses, abnormal calcifications, or other abnormalities. MM/MM tomosynthesis screening BI IMPRESSION: No mammographic evidence of malignancy. ASSESSMENT: BI-RADS BI-RADS 1 - Negative RECOMMENDATION: Routine annual mammography screening. 1 year F/U This examination should not preclude the clinical evaluation of a suspicious palpable abnormality. This patient's information was entered into a reminder system with a target due date for their next mammogram. Electronically signed by: Madalyn Cifuentes DO 10/13/2024 09:10 AM [facility]ISE
== END 2024-10-02 07:22 | disposition home or self-care (01) ==
LOC: HO.MAMMO 07:21
PROVIDERS: PCP Internal Medicine; Visit Provider Internal Medicine
DX: Z12.31 Encounter for screening mammogram for malignant neoplasm of breast (principal)
CPT/HCPCS: 77063; 77067

== ENCOUNTER → 2024-10-02 07:30 | Outpatient (BNV) | payer OTHER, SELFPAY | PROVIDERS: PCP Internal Medicine; Visit Provider Internal Medicine | DX: Z12.31 Encounter for screening mammogram for malignant neoplasm of breast (principal) | CPT/HCPCS: 77063; 77067 ==

== ENCOUNTER 2024-10-30 06:24 | Day surgery (SDC) | payer OTHER, SELFPAY ==
[2024-10-28 08:49] VITALS: BMI 32.8
[2024-10-30 06:55] VITALS: BMI 32.5
[2024-10-30 07:13] LABS: UPreg QC Valid YES; Urine Pregnancy NEGATIVE (NEGATIVE)
[2024-10-30] MEDS: Lactated Ringers 1,000 ML 100 ML IVCONT (07:19)
--- NOTE | 2024-10-30 07:32 | HO.ANESPROP2 ---
Documented by User: Yasmine Tucker NP 10/29/24 08:14 HPI - Anesthesia Eval Consult details Narrative: 49yo F for Colonoscopy PMFSH Active Problems Active Problems: All Active Problems Constipation (Acute) Hypertension (Acute) Unexplained endometrial cells on cervical cytology (Acute) Heavy menstrual bleeding (Acute) Annual physical exam (Acute) Shoulder pain, right (Acute) Colon cancer screening (Acute) Allergic reaction (Acute) Ear congestion (Acute) Abnormal uterine bleeding (Acute) Cervical high risk HPV (human papillomavirus) test positive (Acute) REN III (cervical intraepithelial neoplasia grade III) with severe dysplasia (Acute) COVID-19 virus infection (Acute) Family history of breast cancer (Acute) Breast calcification, left (Acute) Migraine (Acute) GERD (gastroesophageal reflux disease) (Acute) Hypercholesterolemia (Acute) Hypothyroid (Acute) Obesity (BMI 30-39.9) (Acute) Past Medical History Medical History (Updated 05/26/24 @ 16:44 by Jay Fregoso MD) Blood pressure elevated without history of HTN Unexplained endometrial cells on cervical cytology Heavy menstrual bleeding Abnormal Pap smear of cervix Family history of breast cancer Breast calcification, left BRCA negative Obesity (BMI 30-39.9) Hypothyroid Hypercholesterolemia Insomnia GERD (gastroesophageal reflux disease) HPV test positive Vitamin D deficiency Polycystic kidney disease Migraine Family History Family History Father Cancer Diabetes Hypertension Mother Kidney disease Hypertension Breast cancer, Onset Age: 70 Sister Colon cancer, Onset Age: 40 Maternal Aunt Breast cancer Kidney disease Throat cancer Gastric cancer Maternal Aunt Breast cancer Family history of problems with anesthesia: No Surgical History Surgical History Hx of dilation and curettage Hx of colonoscopy History of Problems with Anesthesia: No Social History Social History Household Members: Significant Other Housing: House Alcohol intake: never Patient Tobacco Use Status: Never used Tobacco e-Cigarette/Vaping Use: Never Used Second Hand Smoke Exposure: No Use of substances other than those prescribed or required for medical reasons: No Advance Directives: No Advance Directives Information Provided: Yes Nutrition Risks: No Nutritional Risk service: No Current occupational status: employed Current occupation: [employer] Sexual orientation: Straight/Heterosexual Gender identity: Female Cognitive needs: No Hearing needs: No Vision needs: Yes Meds Allergies Allergy/AdvReac Type Severity Reaction Status Date / Time bee pollen [BEE STINGS] Allergy Severe ANAPHYLAXIS Verified 05/26/24 16:02 kiwi [KIWI] Allergy Intermediate HIVES Verified 05/26/24 16:02 Home Medications ?Medication ?Instructions ?Recorded ?Confirmed ?Last Taken ?Type ashwagandha extract 120 mg capsule 120 mg PO DAILY 11/30/23 10/28/24 Unknown History multivitamin 1 tab PO DAILY 11/30/23 10/28/24 Unknown History Exam Height,Weight and Vital Signs: Height 5 ft 4 in Weight 86.636 kg Assessment and Plan Assessment Anesthesia Assessment: Chart Reviewed Final Anesthetic Review Family History of Problems with Anesthesia: No History of Problems with Anesthesia: No Documented by User: Alka Mckeon DO 10/30/24 07:35 [facility] Past Medical History Medical History (Updated 05/26/24 @ 16:44 by Jay Fregoso MD) Blood pressure elevated without history of HTN Unexplained endometrial cells on cervical cytology Heavy menstrual bleeding Abnormal Pap smear of cervix Family history of breast cancer Breast calcification, left BRCA negative Obesity (BMI 30-39.9) Hypothyroid Hypercholesterolemia Insomnia GERD (gastroesophageal reflux disease) HPV test positive Vitamin D deficiency Polycystic kidney disease Migraine Family History Family History Father Cancer Diabetes Hypertension Mother Kidney disease Hypertension Breast cancer, Onset Age: 70 Sister Colon cancer, Onset Age: 40 Maternal Aunt Breast cancer Kidney disease Throat cancer Gastric cancer Maternal Aunt Breast cancer Family history of problems with anesthesia: No Surgical History Surgical History Hx of dilation and curettage Hx of colonoscopy History of Problems with Anesthesia: No Social History Social History Household Members: Significant Other Housing: House Alcohol intake: never Patient Tobacco Use Status: Never used Tobacco e-Cigarette/Vaping Use: Never Used Second Hand Smoke Exposure: No Use of substances other than those prescribed or required for medical reasons: No Advance Directives: No Advance Directives Information Provided: Yes Nutrition Risks: No Nutritional Risk service: No Current occupational status: employed Current occupation: [employer] Sexual orientation: Straight/Heterosexual Gender identity: Female Cognitive needs: No Hearing needs: No Vision needs: Yes Meds Allergies Allergy/AdvReac Type Severity Reaction Status Date / Time bee pollen [BEE STINGS] Allergy Severe ANAPHYLAXIS Verified 05/26/24 16:02 kiwi [KIWI] Allergy Intermediate HIVES Verified 05/26/24 16:02 Home Medications ?Medication ?Instructions ?Recorded ?Confirmed ?Last Taken ?Type apollodha extract 120 mg capsule 120 mg PO DAILY 11/30/23 10/28/24 Unknown History multivitamin 1 tab PO DAILY 11/30/23 10/28/24 Unknown History Exam Exam Date and Time: 10/30/24 0730 Airway Mallampati Class: I TM Dist: >3cm Neck ROM: Full Loose/Missing/Broken Teeth: No (patient denies any loose or broken teeth) Heart: S1S2 Lungs: CTAB Assessment and Plan Assessment Anesthesia Assessment: Anesthesia Plan Discussed and Chart Reviewed Final Anesthetic Review Family History of Problems with Anesthesia: No History of Problems with Anesthesia: No NPO: Yes ASA Class: II Final Preanesthetic Review: No Changes in Pt Med Stat, Meds/Allgs Chart Reviewed, Consent Obtained/Reviewed and Anes Risks/Benef Reviewed Patient Risk: Low Procedure Risk: Low Anesthetic Plan Anesthetic Plan: MAC: and Agree w/ Assess. and Plan Disposition: Standard PACU
--- NOTE | 2024-10-30 07:49 | MHC.SHP ---
Pre-Procedural Eval Section A - 24 Hr Update-Section A only Date of Service: 10/30/24 Section B - Complete if H&P > 30 days Chief Complaint: Encounter for screening for malignant neoplasm of Details of Present Illness: BRCA negative GERD (gastroesophageal reflux disease) HPV test positive Hypercholesterolemia Hypothyroid Insomnia Migraine Obesity (BMI 30-39.9) Polycystic kidney disease Vitamin D deficiency Present Medications: see Short Stay Collaborative assessment Allergies: Allergies Allergy/AdvReac Type Severity Reaction Status Date / Time bee pollen [BEE STINGS] Allergy Severe ANAPHYLAXIS Verified 05/26/24 16:02 kiwi [KIWI] Allergy Intermediate HIVES Verified 05/26/24 16:02 Review of Systems Review of Systems Comment: Ten point ROS negative Exam Exam Comment: Gen appear: No acute distress HEENT: no icterus Chest: No overt resp distress Abd: soft, nontender, nondistended Psych: Stable affect, answering questions appropriately Neuro: A/Ox3 noted to move all extremities spontaneously Ext: no peripheral edema Plan Diagnosis/Plan: Unchanged I have reviewed the history and physical and performed a pertinent physical examination on my patient. No changes have occurred unless specified. Time Spent With Patient Time: Total time managing care of this patient today ____ minutes.
--- NOTE | 2024-10-30 08:09 | P.OPN-COLO_ITS ---
Colonoscopy Operative Note Operative Note Date of Service: 10/30/24 Narrative: Procedure: Colonoscopy Indication: Screening Endoscopist: Crissy Sam MD Anesthesia Provider: Ang Romero CRNA Anesthesia type: MAC Instrument: Olympus [id number]-[id number] Consent: Indication, risks vs benefits, and alternatives were discussed with the patient who gave written informed consent to proceed. EKG, pulse, pulse oximetry and blood pressure were monitored throughout the procedure. Please see anesthesia flowsheet. Procedure: The patient was brought to the procedure room and placed in the left lateral decubitus position. IV medications were administered by the anesthesia provider in attendance. A digital rectal exam was performed which was normal. A distal attachment cap was affixed to the tip of the colonoscope which was then inserted through the anus and advanced through the colon to the cecum at 75 cm,and terminal ileum. Appendiceal orifice and ileocecal valve were identified. Mucosa was carefully examined under high definition white light as the instrument was slowly withdrawn in a retrograde panoramic fashion. Retroflexion was performed in rectum. The procedure was not difficult. There were no immediate obvious complications. The quality of the prep was BBPS: 2+3+3 = adequate Withdrawal time 9 minutes. Limitations: No limitations. Findings: Mucosa: Normal to cecum and terminal ileum. Protruding lesions: * Large internal hemorrhoids without stigmata of recent bleeding. Excavated lesions: * Scattered diverticulosis of sigmoid colon. Impression: 1. Normal colon and terminal ileum mucosa 2. Internal hemorrhoids 3. Diverticulosis Recommendations: - repeat colonoscopy for asymptomatic colorectal cancer screening in 10 years
[2024-10-30 08:12] VITALS: BP 103/61; PULSE 78; RESP 12; TEMP 36.1; O2SAT 97
[2024-10-30 08:27] VITALS: BP 112/72; PULSE 91; RESP 16; TEMP 36.4; O2SAT 99
== END 2024-10-30 08:48 | disposition home or self-care (01) ==
PROVIDERS: Nurse Practitioner; PCP Internal Medicine; Visit Provider Internal Medicine
PROC: 0DJD8ZZ Inspection of Lower Intestinal Tract, Via Natural or Artificial Opening Endoscopic (ICD-10-PCS; CPT 45378; principal; 2024-10-30 07:40)
DX: Z12.11 Encounter for screening for malignant neoplasm of colon (principal); K57.30 Diverticulosis of large intestine without perforation or abscess without bleeding; K64.8 Other hemorrhoids; K21.9 Gastro-esophageal reflux disease without esophagitis; Q61.3 Polycystic kidney, unspecified; E78.00 Pure hypercholesterolemia, unspecified; R03.0 Elevated blood-pressure reading, without diagnosis of hypertension; E55.9 Vitamin D deficiency, unspecified; E03.9 Hypothyroidism, unspecified; E66.9 Obesity, unspecified; Z68.38 Body mass index [BMI] 38.0-38.9, adult; Z79.899 Other long term (current) drug therapy
CPT/HCPCS: 45378; 81025; J2003; J2704

== ENCOUNTER → 2024-10-30 06:24 | Outpatient (BNV) | payer OTHER, SELFPAY | PROVIDERS: PCP Internal Medicine; Visit Provider Internal Medicine | DX: Z12.11 Encounter for screening for malignant neoplasm of colon (principal); K57.30 Diverticulosis of large intestine without perforation or abscess without bleeding; K64.8 Other hemorrhoids | CPT/HCPCS: 45378 ==

== ENCOUNTER 2024-12-05 15:58 | Outpatient (AMB) | payer OTHER, SELFPAY ==
--- NOTE | 2024-12-05 16:10 | MHC.PC.OV ---
Vital Signs 12/05/24 16:11 Height 5 ft 4 in Weight 197 lb 8 oz BMI 33.9 BP 130/78 Blood Pressure Location Lt brachial Position Sitting Pulse 72 Pulse Source Pulse Oximeter Temp 97.1 F Temp Source Skin Pulse Oximetry (%) 100 Oxygen Delivery Method Room Air Intake Visit Reasons: pe Intake Note: Patient is here today for a physical. 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 Accompanied by: Self / Same As Patient Allergies bee pollen [BEE STINGS] Allergy (Severe, Verified 12/05/24 16:11) ANAPHYLAXIS kiwi [KIWI] Allergy (Intermediate, Verified 12/05/24 16:11) HIVES Medication List - Last Reconciled 12/05/24 by Jay Fregoso MD blood pressure monitor (Blood Pressure Kit) As directed epinephrine (EpiPen 2-Mukul) 0.3 mg (0.3 mL) IM Q4H PRN 90 days levothyroxine 25 mcg PO DAILY multivitamin 1 tab PO DAILY sumatriptan succinate (Imitrex) 50 mg PO QD PRN; Tobacco use date assessed: 12/05/24 Dental Screening Dental Screen Date: 12/05/24 Did you have a dental visit in the last 12 months?: No Did you have a dental problem in the last 6 months where you did not have access to dental care?: No Was dental information given to patient?: Patient has dentist HPI pe HPI Details The patient is a 49-year-old female presenting with hypertension. She has been monitoring her blood pressure at home and reports fluctuation with readings predominantly in the 90s for diastolic blood pressure, which is a concern. Past management included hydrochlorothiazide, initially well-tolerated, but adjustments were made due to side effects with other medications. Hypertension is under evaluation for further management adjustments today. Previously, she tested negative for colon cancer during a recent colonoscopy, though hemorrhoids were noted. The patient had COVID-19 twice, with the most recent infection in June, contracted from her mother. This episode was mild, managed symptomatically at home. There is a significant family history of breast cancer, with three relatives, including the patient's mother and aunts, diagnosed post-menopause. The patient underwent genetic testing, which did not reveal any hereditary concerns. - Up-to-date with colonoscopy showing no signs of malignancy. - COVID-19 history noted; advised on risk reduction. - Patient due for a flu vaccination, received during the visit. - Blood pressure at home monitoring reported irregular diastolic readings; recorder discussed. - Regular exercise routine involving treadmill and weight lifting. - She drinks four 60-ounce bottles of water per day. - The patient does not consume alcohol or use tobacco or recreational drugs. - Regularly exercises using a treadmill and lifting weights. - Reports adequate fluid intake (four 60-ounce bottles of water daily). - Cardiovascular: Denies chest pain and heart palpitations. - Neurological: Denies dizziness, syncope, or headaches. - Respiratory: Denies cough or shortness of breath. - Gastrointestinal: Reports normal bowel movements, denies nausea, vomiting, or dysphagia. - Genitourinary: Denies nocturia or urinary problems. [facility] Medical History (Updated 12/05/24 @ 16:45 by Jay Fregoso MD) Colon cancer screening Blood pressure elevated without history of HTN Unexplained endometrial cells on cervical cytology Heavy menstrual bleeding Abnormal Pap smear of cervix Family history of breast cancer Breast calcification, left BRCA negative Obesity (BMI 30-39.9) Hypothyroid Hypercholesterolemia Insomnia GERD (gastroesophageal reflux disease) HPV test positive Vitamin D deficiency Polycystic kidney disease Migraine Surgical History Hx of dilation and curettage Hx of colonoscopy Family History Father Cancer Diabetes Hypertension Mother Kidney disease Hypertension Breast cancer, Onset Age: 70 Sister Colon cancer, Onset Age: 40 Maternal Aunt Breast cancer Kidney disease Throat cancer Gastric cancer Maternal Aunt Breast cancer Social History Household Members: Significant Other Housing: House Alcohol intake: never Patient Tobacco Use Status: Never used Tobacco e-Cigarette/Vaping Use: Never Used Second Hand Smoke Exposure: No service: No Current occupational status: employed Current occupation: [employer] Sexual orientation: Straight/Heterosexual Gender identity: Female Cognitive needs: No Hearing needs: No Vision needs: Yes (Glasses) Female Reproductive History Menstrual Age of Menarche: 12 Questionnaire PHQ-9 Over the last 2 weeks, how often have you been bothered by any of the following problems? 1. Little interest or pleasure in doing things: not at all 2. Feeling down, depressed, or hopeless: not at all 3. Trouble falling or staying asleep, or sleeping too much: not at all 4. Feeling tired or having little energy: not at all 5. Poor appetite or overeating: not at all 6. Feeling bad about yourself - or that you are a failure or have let yourself or your family down: not at all 7. Trouble concentrating on things, such as reading the newspaper or watching television: not at all 8. Moving or speaking so slowly that other people could have noticed. Or the opposite - being so fidgety or restless that you have been moving around a lot more than usual: not at all 9. Thoughts that you would be better off or of hurting yourself in some way: not at all Total score: 0 Depression Screening Interpretation: Negative Depression Screening Done: Yes Source: Developed by Drs. Chris Denis, Alley Ayala, John Ramirez and colleagues, with an educational lebron from [employer]. Thrive Questionnaire Date Thrive assessed: 12/04/24 I am a: Patient What is your living situation today?: I have a steady place to live Within the past 12 months, did the food you bought not last and you didn't have the money to get more?: I choose not to answer this question Within the past 12 months, did you worry whether your food would run out before you got money to buy more?: I choose not to answer this question Do you have trouble paying for medicines?: No Do you have trouble getting transportation to medical appointments?: No Do you have trouble paying your heating and electricity bill?: No Do you have trouble taking care of your child, family member or friend?: No Do you have trouble with day-to-day activities such as bathing, preparing meals, shopping, managing finances, etc.?: No Are you currently unemployed and looking for a job?: No Are you interested in more education?: I choose not to answer this question Please select the resources that you would like help with: None Currently or been in a relationship where the following occur: No concerns reported THRIVE Score: 0 AUDIT C Alcohol Use Questionnaire (AUDIT-C) 1. How often do you have a drink containing alcohol?: Never 2. How many drinks containing alcohol do you have on a typical day when you are drinking?: 1 or 2 3. How often do you have six or more drinks on one occasion?: Never Total Score: 0 GAURANG-7 AMB Questionnaire GAURANG-7 Date GAURANG - 7 assessed: 12/05/24 Feeling nervous, anxious, or on edge: 0 = Not at all Not being able to stop or control worryin = Not at all Worrying too much about different things: 0 = Not at all Trouble relaxin = Not at all Being so restless that it is hard to sit still: 0 = Not at all Becoming easily annoyed or irritable: 0 = Not at all Feeling afraid as if something awful might happen: 0 = Not at all Total GAURANG-7 score (0-4 normal; 5-9 mild; 10-14 moderate; 15-21 severe): 0 Source: Developed by Drs. Chris Denis, Alley Ayala, John Ramirez and colleagues, with an educational lebron from [employer]. Review of Systems Const Denies poor appetite and Denies weakness Eyes Denies no additional complaints ENT Reports Normal hearing present, Denies dizziness, Denies nasal congestion, Denies tinnitus and Denies sore throat Card Denies chest pain, Denies syncope, Denies rapid heart rate and Denies dyspnea Resp Denies cough and Denies dyspnea GI Denies change in stool character, Reports constipation, Denies diarrhea, Denies nausea and Denies vomiting Denies urinary frequency, Denies difficulty voiding and Denies dysuria Neuro Reports Normal hearing present, Denies confusion, Denies dizziness, Denies syncope and Denies weakness Psych Denies confusion Physical exam (Primary Care) Vital Signs: Last Vital Signs Temp 97.1 F 12/05/24 16:11 Pulse 72 12/05/24 16:11 BP 130/78 12/05/24 16:11 Pulse Ox 100 12/05/24 16:11 Oxygen Delivery Method Room Air 12/05/24 16:11 BMI result Body Mass Index 33.9 Tobacco/Smoking Status: Tobacco use Status Tobacco use date assessed 12/05/24 12/05/24 16:16 Patient Tobacco Use Status Never used Tobacco 12/05/24 16:16 e-Cigarette/Vaping Use Never Used 12/05/24 16:16 PHQ-9: PHQ-9 Score PHQ-9: Total score 0 12/05/24 16:16 Depression Screening Interpretation: Negative Thrive Assessment: Date of Thrive Assessment Date Thrive assessed 12/04/24 12/05/24 16:16 Currently or been in a relationship where the following occur: No concerns reported Const General: No confusion Orientation/consciousness: No confusion HENMT Head: Yes normocephalic Ears: external ears normal and TM's normal bilaterally Face and sinus: Yes normal facial exam Mouth: moist mucous membranes Throat: Yes tonsils normal Eyes Conjunctivae: conjunctivae normal Pupils: Equal, round and reactive pupils present and Pupil accommodation reflex normal Direct Ophthalmoscopy: normal light reflex Neck Neck: No lymphadenopathy Thyroid: Thyroid normal Chest Chest palpation & inspection: normal inspection of the chest Resp Effort & Inspection: normal respiratory effort and no audible wheezes Auscultation: clear to auscultation bilaterally, no crackles, no wheezes and lung sounds not diminished Cardio Rate: regular rate Rhythm: regular rhythm Peripheral pulses: radial pulses present and dorsalis pedis present GI Palpation (GI): no masses Auscultation: normal bowel sounds and normoactive bowel sounds Rectal Exam - Female: deferred Skin General skin exam: no rashes or lesions noted Rashes: no rashes Neuro General: No confusion Cranial nerves: Yes Equal, round and reactive pupils present and Yes Normal hearing present Cognition (Neuro): normal cognition Gait exam (Neuro): Normal gait present Motor exam (neuro): 5/5 motor strength present throughout Deep tendon reflexes (DTR's): Right brachioradialis reflex intensity grade: 2+, Left brachioradialis reflex intensity grade: 2+, Right patellar reflex intensity grade: 2+ and Left patellar reflex intensity grade: 2+ Extrem General: No edema Coding Level of Care Code Est Pt Prev Care 40-64y(05996) Diagnoses Annual physical exam Z00.00 Obesity (BMI 30-39.9) E66.9 Acquired hypothyroidism E03.9 Hypothyroidism type: acquired Hypercholesterolemia E78.00 Gastroesophageal reflux disease without esophagitis K21.9 Esophagitis presence: without esophagitis Assessment & Plan Assessment & Plan (1) Annual physical exam: Code(s): Z00.00 - Encounter for general adult medical examination without abnormal findings Category: Medical (2) Obesity (BMI 30-39.9): Code(s): E66.9 - Obesity, unspecified Category: Medical (3) Hypothyroid: Code(s): E03.9 - Hypothyroidism, unspecified Category: Medical Qualifiers: Hypothyroidism type: acquired Qualified Code(s): E03.9 - Hypothyroidism, unspecified (4) Hypercholesterolemia: Code(s): E78.00 - Pure hypercholesterolemia, unspecified Category: Medical (5) GERD (gastroesophageal reflux disease): Code(s): K21.9 - Gastro-esophageal reflux disease without esophagitis Category: Medical Qualifiers: Esophagitis presence: without esophagitis Qualified Code(s): K21.9 - Gastro-esophageal reflux disease without esophagitis Plan - Labs: Pending blood work as ordered for the next visit, fasting required. - Adjust hydrochlorothiazide dosage to manage hypertension more effectively. - Influenza vaccination administered to update vaccination status. - Continue regular physical activity to aid health maintenance. - Encourage weight loss and dietary modifications, especially increased potassium intake, to address hypertension. - Monitor blood pressure trends closely at home; follow up if consistent high readings persist. - Patient to remain vigilant regarding COVID-19, especially given recent infection. - Family history of cancer noted; maintain routine screenings. During today's visit, we reviewed the concerns regarding the patient's blood pressure, noting inconsistent readings and the need for better control. The increase in hydrochlorothiazide dosage was discussed as a balanced approach to manage diastolic pressures. The patient voiced understanding of her condition and agreed to resume the medication with adjustments for better control. Discussed the importance of maintaining physical activity, hydration, and a balanced diet rich in potassium while monitoring for symptoms like cramps, which might indicate electrolyte disturbances due to medication. We reassured the patient about her COVID-19 recovery, emphasizing preventive measures to avoid future infections. Family history of breast cancer and its implications were discussed; patient reassured about negative genetic testing and advised to continue regular check-ups. - Take the prescribed hydrochlorothiazide as adjusted for blood pressure management. - Continue regular exercise and adequate hydration. - Increase dietary intake of potassium-rich foods like spinach, avocados, and bananas. - Monitor blood pressure regularly and keep a log of readings. - Stay updated on vaccinations; avoid exposure to respiratory illnesses. - Contact us if experiencing any symptoms such as leg cramps, or if blood pressure readings remain high. - Follow up as scheduled for blood work and to assess blood pressure management efficacy. Orders: Orders Complete Blood Count Auto Diff Today I10 - Essential (primary) hypertension Lipid Panel Today E78.00 - Pure hypercholesterolemia, unspecified, I10 - Essential (primary) hypertension UA CC w/rflx Micro + Cult Today I10 - Essential (primary) hypertension, R30.0 - Dysuria Comprehensive Met. Panel Today I10 - Essential (primary) hypertension Free T4 (Free Thyroxine) Today I10 - Essential (primary) hypertension Thyroid Stimulating Hormone Today I10 - Essential (primary) hypertension Vitamin B12 and Folate Today I10 - Essential (primary) hypertension Vitamin D 25-OH Total Today I10 - Essential (primary) hypertension Hemoglobin A1c Today I10 - Essential (primary) hypertension Medications: New hydrochlorothiazide 25 mg PO DAILY 90 tabs 3RF I10 - Essential (primary) hypertension
[2024-12-05 16:11] VITALS: BP 130/78; PULSE 72; TEMP 36.2; O2SAT 100; BMI 33.9
== END 2024-12-05 17:02 | disposition home or self-care (01) ==
PROVIDERS: PCP Internal Medicine; Visit Provider Internal Medicine
DX: Z00.00 Encounter for general adult medical examination without abnormal findings (principal); E66.9 Obesity, unspecified; Z68.33 Body mass index [BMI] 33.0-33.9, adult; E03.9 Hypothyroidism, unspecified; E78.00 Pure hypercholesterolemia, unspecified; K21.9 Gastro-esophageal reflux disease without esophagitis; Z23 Encounter for immunization

== ENCOUNTER → 2024-12-05 15:58 | Outpatient (BNVA) | payer OTHER, SELFPAY | PROVIDERS: PCP Internal Medicine; Visit Provider Internal Medicine | DX: Z00.00 Encounter for general adult medical examination without abnormal findings (principal); Z23 Encounter for immunization; E66.9 Obesity, unspecified; Z68.33 Body mass index [BMI] 33.0-33.9, adult; E03.9 Hypothyroidism, unspecified; E78.00 Pure hypercholesterolemia, unspecified; K21.9 Gastro-esophageal reflux disease without esophagitis; I10 Essential (primary) hypertension | CPT/HCPCS: 90471; 90656; 96127 ==

== ENCOUNTER 2025-06-20 07:15 | Outpatient (REF) | payer OTHER, SELFPAY ==
[2025-06-20 07:44] LABS: MANUAL DIFF FLAG NO
[2025-06-20 08:18] LABS: Hematocrit 39.8 % (37.0-47.0); Hemoglobin 13.2 g/dl (12.0-16.0); Imm Gran Abs Auto 0.02 X10*3/uL (0.00-0.03); Imm Gran Pct Auto 0.3 % (0.0-0.4); Lymphocytes Absolute Auto 1.4 X10*3/uL (1.2-4.9); Mean Corpuscular HGB Conc 33.2 g/dl (31.0-35.0); Mean Corpuscular Hemoglobin 28.0 pg (27.0-33.0); Mean Corpuscular Volume 84.3 fL (80.0-98.0); NRBC Abs Auto 0.000 X10*3/uL (0.0-0.012); NRBC Pct Auto 0.0 /100WBC (0.0-0.2); Platelet Count 284 X10*3/uL (160-400); Red Blood Count 4.72 X10*6/uL (4.20-5.50); White Blood Count 6.3 X10*3/uL (4.8-10.8)
[2025-06-20 08:22] LABS: Appearance Urine Clear; Glucose Urine UA Negative (Negative); PH 8.0 (5.0-9.0); Specific Gravity - Urine 1.015 (1.005-1.025); UMIC TRIGGER UACC YES
[2025-06-20 08:27] LABS: UACC Culture Trigger YES
[2025-06-20 08:49] LABS: Alanine Aminotransferase 19 U/L (0-31); Albumin Level 4.4 g/dL (3.5-5.0); Alkaline Phosphatase 75 U/L (39-117); Anion Gap 12 (12-20); Aspartate Amino Transferase 25 U/L (5-31); Blood Urea Nitrogen 15 mg/dL (9-16); Calcium 9.3 mg/dL (8.4-10.2); Carbon Dioxide 28 mmol/L (22-29); Chloride 104 mmol/L (96-108); Cholesterol 200 mg/dL (<200); Estimated Glomerular Filt Rate > 60; HDL Cholesterol 58 mg/dL (>40); Potassium 4.5 mmol/L (3.3-5.1); Sodium 139 mmol/L (135-145); Total Protein 7.1 g/dL (6.5-8.0); Triglycerides 77 mg/dL (<150)
[2025-06-20 09:03] LABS: Free T4 (Free Thyroxine) 0.76 ng/dL (0.71-1.85); Thyroid Stimulating Hormone 5.77 uIU/mL (0.32-4.0)
[2025-06-20 09:08] LABS: Folate 13.7 ng/mL (> or = 4.0); Vitamin B12 525 pg/mL (200-900)
[2025-06-20 09:12] LABS: Hemoglobin A1C 134.5044 umol/L; Total Hemoglobin (HGBA1C) 3974.3738 umol/L
== END 2025-06-20 07:16 | disposition home or self-care (01) ==
LOC: HO.LAB 07:15
PROVIDERS: PCP Internal Medicine; Visit Provider Internal Medicine
DX: Z13.1 Encounter for screening for diabetes mellitus (principal); I10 Essential (primary) hypertension; E78.00 Pure hypercholesterolemia, unspecified
CPT/HCPCS: 36415; 80053; 80061; 81001; 82306; 82607; 82746; 83036; 84439; 84443; 85025; 87086

== ENCOUNTER 2025-06-29 15:43 | Outpatient (AMB) | payer OTHER, SELFPAY ==
--- NOTE | 2025-06-29 15:49 | A.OFFPC_ITS ---
Vital Signs 06/29/25 15:50 Height 5 ft 4 in Weight 193 lb BMI 33.1 BP 152/80 H Blood Pressure Location Lt brachial Position Sitting Pulse 84 Pulse Source Pulse Oximeter Pulse Oximetry (%) 98 Oxygen Delivery Method Room Air Intake Visit Reasons: 3 month f/u Allergies bee pollen (BEE STINGS) Allergy (Severe, Verified 06/29/25 15:50) ANAPHYLAXIS kiwi (KIWI) Allergy (Intermediate, Verified 06/29/25 15:50) HIVES Tobacco use date assessed: 12/05/24 Dental Screening Dental Screen Date: 12/05/24 HPI 3 month f/u HPI Details BP at home is good, but states work when increased BP would go high PFSH Medical History Colon cancer screening Blood pressure elevated without history of HTN Unexplained endometrial cells on cervical cytology Heavy menstrual bleeding Abnormal Pap smear of cervix Family history of breast cancer Breast calcification, left BRCA negative Obesity (BMI 30-39.9) Hypothyroid Hypercholesterolemia Insomnia GERD (gastroesophageal reflux disease) HPV test positive Vitamin D deficiency Polycystic kidney disease Migraine Surgical History Hx of dilation and curettage Hx of colonoscopy Family History Father Cancer Diabetes Hypertension Mother Kidney disease Hypertension Breast cancer, Onset Age: 70 Sister Colon cancer, Onset Age: 40 Maternal Aunt Breast cancer Kidney disease Throat cancer Gastric cancer Maternal Aunt Breast cancer Social History Household Members: Significant Other Housing: House Alcohol intake: never Patient Tobacco Use Status: Never used Tobacco Tobacco use type: Cigarette e-Cigarette/Vaping Use: Never Used Second Hand Smoke Exposure: No service: No Current occupational status: employed Current occupation: [employer] Sexual orientation: Straight/Heterosexual Gender identity: Female Cognitive needs: No Hearing needs: No Vision needs: Yes (Glasses) Female Reproductive History Menstrual Age of Menarche: 12 Questionnaire Thrive Questionnaire Date Thrive assessed: 12/04/24 I am a: Patient What is your living situation today?: I have a steady place to live Within the past 12 months, did the food you bought not last and you didn't have the money to get more?: I choose not to answer this question Within the past 12 months, did you worry whether your food would run out before you got money to buy more?: I choose not to answer this question Do you have trouble paying for medicines?: No Do you have trouble getting transportation to medical appointments?: No Do you have trouble paying your heating and electricity bill?: No Do you have trouble taking care of your child, family member or friend?: No Do you have trouble with day-to-day activities such as bathing, preparing meals, shopping, managing finances, etc.?: No Are you currently unemployed and looking for a job?: No Are you interested in more education?: I choose not to answer this question Please select the resources that you would like help with: None Currently or been in a relationship where the following occur: No concerns reported THRIVE Score: 0 GAURANG-7 AMB Questionnaire GAURANG-7 Date GAURANG - 7 assessed: 12/05/24 Source: Developed by Drs. Chris Denis, Alley Ayala, John Ramirez and colleagues, with an educational lebron from [employer]. Physical exam (Primary Care) Vital Signs: Last Vital Signs Pulse 84 06/29/25 15:50 BP 152/80 H 06/29/25 15:50 Pulse Ox 98 06/29/25 15:50 Oxygen Delivery Method Room Air 06/29/25 15:50 BMI result Body Mass Index 33.1 Tobacco/Smoking Status: Tobacco use Status Tobacco use date assessed 12/05/24 06/29/25 15:53 Patient Tobacco Use Status Never used Tobacco 06/29/25 15:53 Tobacco use type Cigarette 06/29/25 15:53 e-Cigarette/Vaping Use Never Used 06/29/25 15:53 Thrive Assessment: Date of Thrive Assessment Date Thrive assessed 12/04/24 06/29/25 15:53 Currently or been in a relationship where the following occur: No concerns reported Const General: alert; No acute distress Eyes Conjunctivae: conjunctivae normal Resp Auscultation: clear to auscultation bilaterally Cardio Rate: regular rate Rhythm: regular rhythm GI Inspection: Yes normal to inspection Extrem General: Yes normal to inspection and No edema Coding Level of Care Code Est Pt Level 4 (10799) Complex EM visit Add On G2211 Diagnoses Primary hypertension I10 Hypertension type: primary hypertension Hypercholesterolemia E78.00 Obesity (BMI 30-39.9) E66.9 Acquired hypothyroidism E03.9 Hypothyroidism type: acquired Gastroesophageal reflux disease without esophagitis K21.9 Esophagitis presence: without esophagitis Assessment & Plan Assessment & Plan (1) Hypertension: Code(s): I10 - Essential (primary) hypertension Category: Medical Qualifiers: Hypertension type: primary hypertension Qualified Code(s): I10 - Essential (primary) hypertension Plan: Continue with blood pressure medication. Decrease salt intake and exercise patient on hydrochlorothiazide 25 mg once a day (2) Hypercholesterolemia: Code(s): E78.00 - Pure hypercholesterolemia, unspecified Category: Medical Plan: Avoid fried foods, chicken skin, eggs, butter margarine, pastries and meat. Be it pork or beef they have a lot of cholesterol LDL goal of less than 130 and triglyceride of less than 150. Patient at goal June 2025 last blood work (3) Obesity (BMI 30-39.9): Code(s): E66.9 - Obesity, unspecified Category: Medical Plan: Diet and exercise (4) Hypothyroid: Code(s): E03.9 - Hypothyroidism, unspecified Category: Medical Qualifiers: Hypothyroidism type: acquired Qualified Code(s): E03.9 - Hypothyroidism, unspecified Plan: Patient on thyroid medication 25 mcg once a day (5) GERD (gastroesophageal reflux disease): Code(s): K21.9 - Gastro-esophageal reflux disease without esophagitis Category: Medical Qualifiers: Esophagitis presence: without esophagitis Qualified Code(s): K21.9 - Gastro-esophageal reflux disease without esophagitis Plan: Avoid the foods that causes that usually spicy foods, tomato products, juices, coffee, soda and foods that your sensitive to. After eating do not lie down, allow 3-4 hours before in lie down. And keep the head of bed above 30 degrees to avoid the acid from going up. Plan History of Present Illness The patient is a 49-year-old female presenting for a follow-up visit. She has a history of hypothyroidism, hypercholesterolemia, gastroesophageal reflux disease, migraine, cervical intraepithelial neoplasia 3, and hypertension. Her thyroid function tests show a mildly elevated thyroid-stimulating hormone level of 5.77, which is above the desired range of 0.3 to 4. The patient is currently on thyroid medication, taking 25 mcg once a day, but there is a need to adjust the timing of the medication to avoid interactions with food and other medications. The patient's cholesterol levels are well managed with an LDL of 127, which is within the target range of less than 130. She is advised to continue with her current diet and exercise regimen to maintain these levels. The patient reports her blood pressure is often elevated during visits, attributed to white coat syndrome, but she monitors it regularly at home. She is currently on hydrochlorothiazide 25 mg once a day for hypertension management. Her preventative care is up to date with a colonoscopy in October 2024, a mammogram in September 2024, and a Pap smear in February 2024. Health Maintenance - Colonoscopy: Up to date as of October 2024 - Mammogram: Up to date as of September 2024 - Pap smear: Up to date as of February 2024 - Diet and exercise: Advised to continue current regimen Social History - Employment: Works six days a week with long hours, recently returned to normal hours - Nutrition: Incorporates more fruits and vegetables into diet, drinks four bottles of water daily Review of Systems - Cardiovascular: Reports elevated blood pressure during visits, denies chest pain or palpitations - Endocrine: Reports taking thyroid medication regularly - Neurological: Reports history of migraines - Gastrointestinal: Reports history of gastroesophageal reflux disease - Genitourinary: Denies urinary symptoms despite presence of white blood cells i n urine Physical Exam Results - Labs: Normal blood count, electrolytes, renal function, blood sugar, hemoglobin A1c, liver function, vitamin D, B12, folic acid - Thyroid function: TSH mildly elevated at 5.77 - Lipid panel: LDL at 127, within target range - Urinalysis: Presence of white blood cells Plan The patient will continue her current thyroid medication regimen but will adjust the timing to avoid interactions with food and other medications. A follow-up thyroid function test is planned closer to her next visit in November to reassess her thyroid levels. For hypercholesterolemia, the patient is advised to maintain her current diet and exercise regimen, as her LDL levels are within the target range. Her hypertension management includes continuing hydrochlorothiazide 25 mg daily, w ith regular home monitoring of blood pressure to account for white coat syndrome. Preventative care measures are up to date, including colonoscopy, mammogram, and Pap smear. Patient was informed and verbally consented to the use of an ambient scribe for clinic note documentation during this visit. Discussion Notes I discussed with the patient the importance of taking her thyroid medication se parately from other medications and food to ensure proper absorption. We agreed to retest her thyroid function closer to her next appointment in November. I emphasized maintaining her current lifestyle to manage her cholesterol levels and advised regular blood pressure monitoring at home due to white coat syndrome. Patient Instructions - Take thyroid medication separately from other medications and food. - Continue current diet and exercise regimen to maintain cholesterol levels. - Monitor blood pressure regularly at home. - Schedule thyroid function test before next appointment in November. Orders: Orders Comprehensive Met. Panel 3 Months E03.9 - Hypothyroidism, unspecified Hemoglobin A1c 3 Months E03.9 - Hypothyroidism, unspecified Free T4 (Free Thyroxine) 3 Months E03.9 - Hypothyroidism, unspecified Thyroid Stimulating Hormone 3 Months E03.9 - Hypothyroidism, unspecified
[2025-06-29 15:50] VITALS: BP 152/80; PULSE 84; O2SAT 98; BMI 33.1
== END 2025-06-29 16:50 | disposition home or self-care (01) ==
LOC: HO.HMCH 15:44
PROVIDERS: PCP Internal Medicine; Visit Provider Internal Medicine
DX: I10 Essential (primary) hypertension (principal); E66.9 Obesity, unspecified; Z68.33 Body mass index [BMI] 33.0-33.9, adult; E78.00 Pure hypercholesterolemia, unspecified; E03.9 Hypothyroidism, unspecified; K21.9 Gastro-esophageal reflux disease without esophagitis

== ENCOUNTER 2025-09-29 12:49 | Outpatient (REF) | payer OTHER, SELFPAY ==
[2025-09-29 16:45] LABS: Bacterial Vaginosis PCR POSITIVE (Negative); Candida Group PCR NOT DETECTED (Not Detect); Candida glab krusei PCR NOT DETECTED (Not Detect); Trichomonas vaginalis PCR NOT DETECTED (Not Detect)
[2025-09-29 17:16] LABS: CT PCR NOT DETECTED (Not Detect.); NG PCR NOT DETECTED (Not Detect.)
== END 2025-09-29 12:50 | disposition home or self-care (01) ==
LOC: HO.LNP 12:49
PROVIDERS: PCP Internal Medicine; Visit Provider Advanced Practice Midwife
DX: N93.9 Abnormal uterine and vaginal bleeding, unspecified (principal); Z32.02 Encounter for pregnancy test, result negative; Z20.2 Contact with and (suspected) exposure to infections with a predominantly sexual mode of transmission
CPT/HCPCS: 81025; 81515; 87491; 87591

== ENCOUNTER 2025-09-29 12:49 | Outpatient (AMB) | payer OTHER, SELFPAY ==
--- NOTE | 2025-09-29 12:56 | MHC.OFFVIS ---
Vital Signs 09/29/25 12:57 Height 5 ft 4 in Weight 198 lb BMI 34.0 BP 142/96 H Intake Visit Reasons: AUB Intake Note: LMP 08/14/25 still bleeding Inbound Sales Consultant: Inbound Sales Consultant Present (Estella) Allergies bee pollen (BEE STINGS) Allergy (Severe, Verified 09/29/25 12:57) ANAPHYLAXIS kiwi (KIWI) Allergy (Intermediate, Verified 09/29/25 12:57) HIVES Is last menstrual period known: Yes Last menstrual period: 08/14/25 HPI Comments Details: Patient is here today for a abnormal uterine bleeding LMP was June 12, skipped July onset of bleeding August 14 to present a, heavy at times. Last TSH 5.77, since has adjusted her medication intake, Hgb. 13.2 PFSH Medical History Colon cancer screening Blood pressure elevated without history of HTN Unexplained endometrial cells on cervical cytology Heavy menstrual bleeding Abnormal Pap smear of cervix Family history of breast cancer Breast calcification, left BRCA negative Obesity (BMI 30-39.9) Hypothyroid Hypercholesterolemia Insomnia GERD (gastroesophageal reflux disease) HPV test positive Vitamin D deficiency Polycystic kidney disease Migraine Surgical History Hx of dilation and curettage Hx of colonoscopy Family History Father Cancer Diabetes Hypertension Mother Kidney disease Hypertension Breast cancer, Onset Age: 70 Sister Colon cancer, Onset Age: 40 Maternal Aunt Breast cancer Kidney disease Throat cancer Gastric cancer Maternal Aunt Breast cancer Social History Household Members: Significant Other Housing: House Alcohol intake: never Patient Tobacco Use Status: Never used Tobacco Tobacco use type: Cigarette e-Cigarette/Vaping Use: Never Used Second Hand Smoke Exposure: No service: No Current occupational status: employed Current occupation: [employer] Sexual orientation: Straight/Heterosexual Gender identity: Female Cognitive needs: No Hearing needs: No Vision needs: Yes (Glasses) Female Reproductive History Menstrual Age of Menarche: 12 Date of last menstrual period: 08/14/25 Review of Systems Const All systems reviewed & are unremarkable except as noted in HPI and below Physical Exam Vital Signs: Last Vital Signs BP 142/96 H 09/29/25 12:57 BMI result Body Mass Index 34.0 Const General: cooperative, healthy appearing and no acute distress Orientation/consciousness: patient oriented x3 GI Inspection: Yes normal to inspection Palpation (GI): Soft to palpation and Other GI palpation findings present (Nontender) Rectal Exam - Female: visual inspection normal General: Yes bladder normal to palpation External Female Exam: normal appearance of the urethra Speculum Exam - Vagina: normal appearance of the vagina, normal palpation, normal vaginal discharge and vaginal bleeding Speculum Exam - Cervix: normal appearance of the cervix and normal palpation Bimanual exam- vagina & uterus: normal bimanual exam, normal palpation, uterine size normal, bladder normal to palpation, normal palpation, uterine shape normal and non-tender Bimanual Exam- Adnexa, other: normal adnexae OB/external & speculum: vaginal bleeding Neuro General: patient oriented x3 Results AMB Test Urine AMB Test Urine Negative Last Edit by FELIX Faria on 09/29/25 13:08 Results Reviewed Results Reviewed: Laboratory Last Values Tst Clinic Negative 09/29/25 13:08 Assessment & Plan Assessment & Plan (1) Abnormal uterine bleeding: Code(s): N93.9 - Abnormal uterine and vaginal bleeding, unspecified Category: Medical Plan Discuss workup for AUB to include pelvic ultrasound, endometrial biopsy, Pap smear when bleeding has decreased, GC chlamydia and BV panel. Lab work as noted below. Anticipatory guidance for endometrial biopsy, patient prefers not to take any medication due to her renal concerns. Advised to eat and drink before the procedure. Follow up for endometrial biopsy pending ultrasound results and same-day Mirena IUD insert. Counseled regarding Mirena IUD. The patient expressed understanding and agreement with the plan of care. All of her questions and concerns were addressed to the best of my ability. This note is constructed using voice recognition software. While every effort has been made to ensure accuracy, director of veterans affairs errors may have been included. Orders: Orders AMB HCG Urine Test Today N93.9 - Abnormal uterine and vaginal bleeding, unspecified TSH reflex Free T4 Today N93.9 - Abnormal uterine and vaginal bleeding, unspecified US pelvic and transvaginal Today N93.9 - Abnormal uterine and vaginal bleeding, unspecified CT NG by PCR Vag/Cerv Today N93.9 - Abnormal uterine and vaginal bleeding, unspecified Complete Blood Count no Diff Today N93.9 - Abnormal uterine and vaginal bleeding, unspecified Bacterial Vaginosis Panel Today N93.9 - Abnormal uterine and vaginal bleeding, unspecified Coding Level of Care Code Est Pt Level 3 (14793) Diagnoses Abnormal uterine bleeding N93.9
[2025-09-29 12:57] VITALS: BP 142/96; BMI 34.0
== END 2025-09-29 14:47 | disposition home or self-care (01) ==
LOC: HO.HWS 12:50
PROVIDERS: PCP Internal Medicine; Visit Provider Advanced Practice Midwife
DX: N93.9 Abnormal uterine and vaginal bleeding, unspecified (principal)
CPT/HCPCS: 99213

== ENCOUNTER 2025-09-29 13:34 | Outpatient (REF) | payer OTHER, SELFPAY ==
[2025-09-29 14:35] LABS: Hematocrit 39.6 % (37.0-47.0); Hemoglobin 12.9 g/dl (12.0-16.0); Mean Corpuscular HGB Conc 32.6 g/dl (31.0-35.0); Mean Corpuscular Hemoglobin 27.6 pg (27.0-33.0); Mean Corpuscular Volume 84.6 fL (80.0-98.0); NRBC Abs Auto 0.000 X10*3/uL (0.0-0.012); NRBC Pct Auto 0.0 /100WBC (0.0-0.2); Platelet Count 314 X10*3/uL (160-400); Red Blood Count 4.68 X10*6/uL (4.20-5.50); White Blood Count 6.9 X10*3/uL (4.8-10.8)
[2025-09-29 15:42] LABS: Free T4 (Free Thyroxine) 0.77 ng/dL (0.71-1.85)
== END 2025-09-29 13:35 | disposition home or self-care (01) ==
LOC: HO.LAB 13:34
PROVIDERS: PCP Internal Medicine; Visit Provider Advanced Practice Midwife
DX: Z13.29 Encounter for screening for other suspected endocrine disorder (principal); N93.9 Abnormal uterine and vaginal bleeding, unspecified
CPT/HCPCS: 36415; 84439; 84443; 85027

== ENCOUNTER 2025-09-29 15:47 | Outpatient (REF) | payer OTHER, SELFPAY ==
--- NOTE | ~2025-09-29 | US_ITS ---
CLINICAL HISTORY: abnormal uterine bleeding US pelvis transabdominal and transvaginal with Doppler Comparison: None provided Findings: Transabdominal scanning performed for overall anatomy. Transvaginal scanning performed for additional detail. Anteverted uterus is 8.8 cm length. Normal myometrium. No endometrial lesion, 13 mm thickness. Endometrium is heterogeneous with multiple cystic regions Right ovary 4.1 x 1.9 x 3.1 cm. 40 mm right ovarian cyst is present. Left ovary 4.6 x 4.3 x 3 cm. 32 mm left ovarian cyst is present. Normal color Doppler with arterial/venous spectral tracing of both ovaries. No free fluid. IMPRESSION: 1. Thickened endometrium, possibly indicating hyperplasia or neoplasm. Gynecologic consultation recommended. 2. Bilateral adnexal cysts. Recommend follow-up ultrasound in 6 weeks to ensure resolution and exclude underlying neoplasm. This document has been electronically signed by: Julio Knapp MD on 09/29/2025 17:51:52
== END 2025-09-29 15:48 | disposition home or self-care (01) ==
LOC: HO.US 15:47
PROVIDERS: PCP Internal Medicine; Visit Provider Advanced Practice Midwife
DX: N93.9 Abnormal uterine and vaginal bleeding, unspecified (principal)
CPT/HCPCS: 76830; 76856

== ENCOUNTER → 2025-09-29 15:51 | Outpatient (BNV) | payer OTHER, SELFPAY | PROVIDERS: PCP Internal Medicine; Visit Provider Radiology Diagnostic Radiology | DX: N93.9 Abnormal uterine and vaginal bleeding, unspecified (principal); R93.89 Abnormal findings on diagnostic imaging of other specified body structures | CPT/HCPCS: 76830; 76856 ==

== ENCOUNTER 2025-10-01 13:20 | Outpatient (AMB) | payer OTHER, SELFPAY ==
[2025-10-01 13:39] VITALS: BP 128/84
--- NOTE | 2025-10-01 13:39 | A.OFFVIS_ITS ---
Vital Signs 10/01/25 13:39 BP 128/84 Intake Visit Reasons: Mirena/EMB/US follow up/60 min per BM Explosives Mixer Operator: Explosives Mixer Operator Present (Estella) Allergies bee pollen (BEE STINGS) Allergy (Severe, Verified 09/29/25 12:57) ANAPHYLAXIS kiwi (KIWI) Allergy (Intermediate, Verified 09/29/25 12:57) HIVES Is last menstrual period known: Yes HPI Comments Details: Patient is here today for a follow up pelvic ultrasound, history of AUB. Patient reports increased bleeding since her last visit 2 days ago. She does not have any pelvic pain. She reports pain with the onset of her menses only. [facility] Medical History (Updated 10/01/25 @ 14:25 by Heydi Platt CNM) Ovarian cyst Colon cancer screening Blood pressure elevated without history of HTN Unexplained endometrial cells on cervical cytology Heavy menstrual bleeding Abnormal Pap smear of cervix Family history of breast cancer Breast calcification, left BRCA negative Obesity (BMI 30-39.9) Hypothyroid Hypercholesterolemia Insomnia GERD (gastroesophageal reflux disease) HPV test positive Vitamin D deficiency Polycystic kidney disease Migraine Surgical History Hx of dilation and curettage Hx of colonoscopy Family History Father Cancer Diabetes Hypertension Mother Kidney disease Hypertension Breast cancer, Onset Age: 70 Sister Colon cancer, Onset Age: 40 Maternal Aunt Breast cancer Kidney disease Throat cancer Gastric cancer Maternal Aunt Breast cancer Social History Household Members: Significant Other Housing: House Alcohol intake: never Patient Tobacco Use Status: Never used Tobacco Tobacco use type: Cigarette e-Cigarette/Vaping Use: Never Used Second Hand Smoke Exposure: No service: No Current occupational status: employed Current occupation: [employer] Sexual orientation: Straight/Heterosexual Gender identity: Female Cognitive needs: No Hearing needs: No Vision needs: Yes (Glasses) Female Reproductive History Menstrual Age of Menarche: 12 Review of Systems Const All systems reviewed & are unremarkable except as noted in HPI and below Endo Reports no additional complaints Physical Exam Vital Signs: Last Vital Signs BP 128/84 10/01/25 13:39 Const General: cooperative, healthy appearing and no acute distress Psych Appearance: well kempt Attitude: cooperative Thought process: Normal thought process present Results AMB Test Urine AMB Test Urine Negative Last Edit by FELIX Faria on 10/01/25 13:40 Results Reviewed Results Reviewed: Laboratory Last Values Tst Clinic Negative 10/01/25 13:[address] [address] Ultrasound Report Signed Patient: Marcella Ha MR#: [id number] : 1975 Acct:[id number] Age/Sex: 50 / F ADM Date: 09/29/25 Loc: HO.US Attending Dr: Heydi Platt CNM Ordering Physician: Heydi Platt CNM Date of Service: 09/29/25 Procedure(s): US pelvic and transvaginal Accession Number(s): [id number] cc: Heydi Platt CNM; Po,Jay Stewart MD~ Reason for Exam: N93.9 - Abnormal uterine and vaginal bleeding, unspecified CLINICAL HISTORY: abnormal uterine bleeding US pelvis transabdominal and transvaginal with Doppler Comparison: None provided Findings: Transabdominal scanning performed for overall anatomy. Transvaginal scanning performed for additional detail. Anteverted uterus is 8.8 cm length. Normal myometrium. No endometrial lesion, 13 mm thickness. Endometrium is heterogeneous with multiple cystic regions Right ovary 4.1 x 1.9 x 3.1 cm. 40 mm right ovarian cyst is present. Left ovary 4.6 x 4.3 x 3 cm. 32 mm left ovarian cyst is present. Normal color Doppler with arterial/venous spectral tracing of both ovaries. No free fluid. IMPRESSION: 1. Thickened endometrium, possibly indicating hyperplasia or neoplasm. Gynecologic consultation recommended. 2. Bilateral adnexal cysts. Recommend follow-up ultrasound in 6 weeks to ensure resolution and exclude underlying neoplasm. This document has been electronically signed by: Julio Knapp MD on 09/29/2025 17:51:52 Dictated By: Julio Knapp MD Signed By: <Electronically signed by Julio Knapp MD in OV> 09/29/251751 DD/ 50 TD/TT: 09/29/251750 Soap Grinder: Assessment & Plan Assessment & Plan (1) Abnormal uterine bleeding: Code(s): N93.9 - Abnormal uterine and vaginal bleeding, unspecified Category: Medical Plan: Discussed ultrasound findings: IMPRESSION: 1. Thickened endometrium, possibly indicating hyperplasia or neoplasm. Gynecologic consultation recommended. 2. Bilateral adnexal cysts. Recommend follow-up ultrasound in 6 weeks to ensure resolution and exclude underlying neoplasm. Endometrial lining suggested of endometrial polyps recommend a hysteroscopy for further evaluation and treatment. Endometrial tissue to be sent for analysis to rule out atypia, hyperplasia, precancer and cancer. Patient be scheduled today for consult with Dr. Ordoñez. Anticipatory guidance for hysteroscopy procedure reviewed. The patient expressed understanding and agreement with the plan of care. All of her questions and concerns were addressed to the best of my ability. (2) Ovarian cyst: Code(s): N83.209 - Unspecified ovarian cyst, unspecified side Category: Medical Qualifiers: Laterality: bilateral Qualified Code(s): N83.201 - Unspecified ovarian cyst, right side; N83.202 - Unspecified ovarian cyst, left side Plan: Discussed ultrasound findings regarding ovarian cysts. Reviewed warnings and when to call for any pelvic pain. The patient expressed understanding and agreement with the plan of care. All of her questions and concerns were addressed to the best of my ability. Plan Counseled regarding findings of: Complex ovarian cyst, which is often benign, and most resolve on their own overtime. Some develop into premalignant or malignant tumors. Limitations of testing for diagnostic purposes. Further monitoring and evaluation is recommended with US, possible CT, or MRI study. If persists, or is indicated (Ca-125, Carbohydrate Antigen 19-9, & Carcinoembryonic Antigen) labs will be ordered and referral to [facility] or general gynecology for MD care if indicated for possible surgical consult. Follow up in person for test results. All of her questions and concerns were addressed to the best of my ability and shared decision making. She is agreeable to the plan of care. This note is constructed using voice recognition software. While every effort has been made to ensure accuracy, home care specialist errors may have been included. Orders: Orders AMB HCG Urine Test Today N93.9 - Abnormal uterine and vaginal bleeding, unspecified Medications: New medroxyprogesterone (Provera) 10 mg PO DAILY 45 tabs 0RF 45 days Coding Diagnoses Abnormal uterine bleeding N93.9 Cysts of both ovaries N83.201; N83.202 Laterality: bilateral
== END 2025-10-01 15:25 | disposition home or self-care (01) ==
LOC: HO.HWS 13:21
PROVIDERS: PCP Internal Medicine; Visit Provider Advanced Practice Midwife
DX: N93.9 Abnormal uterine and vaginal bleeding, unspecified (principal)

== ENCOUNTER → 2025-10-01 13:20 | Outpatient (BNVA) | payer OTHER, SELFPAY | PROVIDERS: PCP Internal Medicine; Visit Provider Advanced Practice Midwife | DX: Z32.02 Encounter for pregnancy test, result negative (principal) | CPT/HCPCS: 81025 ==

== ENCOUNTER 2025-10-12 07:25 | Outpatient (REF) | payer OTHER, SELFPAY ==
--- NOTE | ~2025-10-12 | MM_ITS ---
EXAMINATION: MM SCREENING DIGITAL BREAST TOMOSYNTHESIS, BILATERAL CLINICAL INFORMATION: Screening. Asymptomatic. COMPARISON: Mammography: Comparison is made with available priors TECHNIQUE: Digital breast mammography with tomosynthesis is performed in both the craniocaudal and mediolateral oblique views along with computer-aided detection (CAD). FINDINGS: There are scattered areas of fibroglandular density. Left marker clip. There are no significant masses, abnormal calcifications, or other abnormalities. MM/MM tomosynthesis screening BI IMPRESSION: No mammographic evidence of malignancy. ASSESSMENT: BI-RADS Category 2: Benign RECOMMENDATION: Routine annual mammography screening. 1 year F/U This examination should not preclude the clinical evaluation of a suspicious palpable abnormality. This patient's information was entered into a reminder system with a target due date for their next mammogram. Electronically signed by: Madalyn Cifuentes DO 10/12/2025 02:18 PM [facility]
== END 2025-10-12 07:26 | disposition home or self-care (01) ==
LOC: HO.MAMMO 07:25
PROVIDERS: PCP Internal Medicine; Visit Provider Internal Medicine
DX: N93.9 Abnormal uterine and vaginal bleeding, unspecified (principal); Z12.31 Encounter for screening mammogram for malignant neoplasm of breast
CPT/HCPCS: 77063; 77067

== ENCOUNTER → 2025-10-12 07:30 | Outpatient (BNV) | payer OTHER, SELFPAY | PROVIDERS: PCP Internal Medicine; Visit Provider Internal Medicine | DX: Z12.31 Encounter for screening mammogram for malignant neoplasm of breast (principal) | CPT/HCPCS: 77063; 77067 ==

== ENCOUNTER 2025-10-12 11:17 | Outpatient (AMB) | payer OTHER, SELFPAY ==
--- NOTE | 2025-10-12 11:20 | A.OFFVIS_ITS ---
Vital Signs 10/12/25 11:22 Height 5 ft 4 in Weight 199 lb BMI 34.2 BP 142/92 H Intake Visit Reasons: Hysteroscopy consult Manufacturing Plant Controller Required: No Information Interpreted: non-clinical & clinical Director Of Contracts: Director Of Contracts Present Accompanied by: Self / Same As Patient Allergies bee pollen (BEE STINGS) Allergy (Severe, Verified 10/12/25 11:26) ANAPHYLAXIS kiwi (KIWI) Allergy (Intermediate, Verified 10/12/25 11:26) HIVES Is last menstrual period known: Yes Last menstrual period: 09/09/20 Post menopausal: No Patient : No Do you need a note to return to daycare/school/sports/work: Yes (for surgery on sunday) HPI Comments Details: Presenting referred from Heydi Platt CNM regarding abnormal uterine bleeding and abnormal endometrium by ultrasound which showed the following: Transabdominal scanning performed for overall anatomy. Transvaginal scanning performed for additional detail. Anteverted uterus is 8.8 cm length. Normal myometrium. Endometrium 13 mm thickness and is heterogeneous with multiple cystic regions. Right ovary 4.1 x 1.9 x 3.1 cm. Left ovary 4.6 x 4.3 x 3 cm. Normal color Doppler images of both ovaries. No free fluid. IMPRESSION: 1. Thickened endometrium, consistent with neoplasm versus hyperplasia. 2. No acute process. 05/05 Co testing negative [facility] Medical History (Updated 10/12/25 @ 11:57 by Gordon Ordoñez MD) REN III (cervical intraepithelial neoplasia grade III) with severe dysplasia Ovarian cyst Colon cancer screening Blood pressure elevated without history of HTN Unexplained endometrial cells on cervical cytology Heavy menstrual bleeding Abnormal Pap smear of cervix Family history of breast cancer Breast calcification, left BRCA negative Obesity (BMI 30-39.9) Hypothyroid Hypercholesterolemia Insomnia GERD (gastroesophageal reflux disease) HPV test positive Vitamin D deficiency Polycystic kidney disease Migraine Surgical History Hx of dilation and curettage Hx of colonoscopy Family History Father Cancer Diabetes Hypertension Mother Kidney disease Hypertension Breast cancer, Onset Age: 70 Sister Colon cancer, Onset Age: 40 Maternal Aunt Breast cancer Kidney disease Throat cancer Gastric cancer Maternal Aunt Breast cancer Social History Household Members: Significant Other Housing: House Alcohol intake: never Patient Tobacco Use Status: Never used Tobacco Tobacco use type: Cigarette e-Cigarette/Vaping Use: Never Used Second Hand Smoke Exposure: No service: No Current occupational status: employed Current occupation: [employer] Sexual orientation: Straight/Heterosexual Gender identity: Female Cognitive needs: No Hearing needs: No Vision needs: Yes (Glasses) Female Reproductive History Menstrual Age of Menarche: 12 Date of last menstrual period: 09/09/20 Total pregnancies: 2 Full term: 2 Review of Systems Card Reports as per HPI and Reports no additional complaints Resp Reports as per HPI and Reports no additional complaints GI Reports as per HPI and Reports no additional complaints Reports as per HPI Physical Exam Vital Signs: Last Vital Signs BP 142/92 H 10/12/25 11:22 BMI result Body Mass Index 34.2 Const General: cooperative, healthy appearing and comfortable Resp Effort & Inspection: normal respiratory effort Auscultation: clear to auscultation bilaterally Percussion: percussion normal Cardio Palpation: normal PMI Rate: regular rate Rhythm: regular rhythm Heart sounds: no murmurs and no rubs Peripheral pulses: Peripheral pulses 2+ throughout GI Inspection: Yes normal to inspection Palpation (GI): Soft to palpation, nontender, no guarding, not rigid and No hepatosplenomegaly present Percussion: Yes normal to percussion Auscultation: normal bowel sounds Rectal Exam - Female: deferred Assessment & Plan Assessment & Plan (1) Abnormal uterine bleeding: Comment: Abnormal endometrium by ultrasound Code(s): N93.9 - Abnormal uterine and vaginal bleeding, unspecified Category: Medical Plan: Discussed with the patient the finding on ultrasound showing abnormal endometrium, endometrial pathology including endometrial hyperplasia and/or malignancy needs to be ruled out. Recommended to the patient that the next step is an endometrial sampling via hysteroscopy D&C possible polypectomy versus endometrial biopsy to r/o endometrial pathology including hyperplasia or cancer. All the pros and cons risks and benefits of each approach were discussed with the patient, endometrial biopsy being less invasive, office procedure with less sensitivity and inability diagnose a polyp and removal versus hysteroscopy done under anesthesia more invasive more sensitive to endometrial cancer and possibility of diagnosing and endometrial polyp with the possibility of polypectomy. All questions were answered pt verbalized understanding and decided to proceed with hysteroscopy D&C possible polypectomy/myomectomy. Co testing done since the patient has history of REN 2-3 status post LEEP in 2021 followed by negative Co testing in and but no Co testing done this year check the results prior to the procedure to confirm no need for colposcopy biopsy or any additional procedure during the hysteroscopy D&C. Instructions given the patient to schedule a telehealth visit within a week to discuss the results of the Pap smear /HPV and if there is any indication for any additional procedure done prior to hysteroscopy D&C polypectomy Discussed with the patient the procedure , all benefits and risks including but not limited to inability to complete the procedure , insufficient endometrial tissue for a complete evaluation of the endometrial cavity , bleeding, infection, possible need for blood transfusion with all its risk ( HIV,syphilis, Hepatitis, anaphylaxis shock, others..), injury to bladder, rectum, possible need for laparoscopy/laparotomy or hysterectomy. The patient verbalized understanding and signed the consent. Instructions given the patient to stay NPO after midnight the day prior to the procedure and to take only the specific medication (s) discussed the morning of the surgical procedure and to schedule a 2 week postoperative appointment Coding Level of Care Code Est Pt Level 3 (73886) Diagnoses Abnormal uterine bleeding N93.9
[2025-10-12 11:22] VITALS: BP 142/92; BMI 34.2
== END 2025-10-12 12:10 | disposition home or self-care (01) ==
LOC: HO.HWS 11:18
PROVIDERS: PCP Internal Medicine; Visit Provider Obstetrics & Gynecology
DX: N93.9 Abnormal uterine and vaginal bleeding, unspecified (principal)
CPT/HCPCS: 99213

== ENCOUNTER 2025-10-12 12:11 | Outpatient (REF) | payer OTHER, SELFPAY | END 2025-10-12 12:12 | disposition home or self-care (01) | LOC: HO.LNP 12:11 | PROVIDERS: Visit Provider Obstetrics & Gynecology | DX: R87.810 Cervical high risk human papillomavirus (HPV) DNA test positive (principal) | CPT/HCPCS: 87626; 88175 ==

== ENCOUNTER 2025-10-26 11:12 | Outpatient (AMB) | payer OTHER, SELFPAY ==
--- NOTE | 2025-10-26 11:12 | A.OFFVIS_ITS ---
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 Co testing done recently showed the following: Negative for intraepithelial lesion or malignancy (NILM). Satisfactory for evaluation, endocervical glands present. Endometrial cells present age 45 and over. See comment. HPV High Risk: Negative HPV Genotyping 16: Negative HPV Genotyping 18: Negative Comment: Endometrial cells after age 45, particularly out of phase or after menopause, may be associated with benign endometrium, hormonal alterations or, less commonly, endometrial/uterine abnormalities. Please correlate with clinical findings [facility] Medical History REN III (cervical intraepithelial neoplasia grade III) with severe dysplasia Ovarian cyst Colon cancer screening Blood pressure elevated without history of HTN Unexplained endometrial cells on cervical cytology Heavy menstrual bleeding Abnormal Pap smear of cervix Family history of breast cancer Breast calcification, left BRCA negative Obesity (BMI 30-39.9) Hypothyroid Hypercholesterolemia Insomnia GERD (gastroesophageal reflux disease) HPV test positive Vitamin D deficiency Polycystic kidney disease Migraine Surgical History Hx of dilation and curettage Hx of colonoscopy Family History Father Cancer Diabetes Hypertension Mother Kidney disease Hypertension Breast cancer, Onset Age: 70 Sister Colon cancer, Onset Age: 40 Maternal Aunt Breast cancer Kidney disease Throat cancer Gastric cancer Maternal Aunt Breast cancer Social History Household Members: Significant Other Housing: House Alcohol intake: never Patient Tobacco Use Status: Never used Tobacco Tobacco use type: Cigarette e-Cigarette/Vaping Use: Never Used Second Hand Smoke Exposure: No service: No Current occupational status: employed Current occupation: [employer] Sexual orientation: Straight/Heterosexual Gender identity: Female Cognitive needs: No Hearing needs: No Vision needs: Yes (Glasses) Female Reproductive History Menstrual Age of Menarche: 12 Review of Systems Const All systems reviewed & are unremarkable except as noted in HPI and below Reports as per HPI and Reports no additional complaints GI Reports no additional complaints Reports no additional complaints Telehealth Telehealth Telehealth Platform: D[employer] Location of provider rendering services: practice address Location of patient: address on file Patient Identification confirmed using: Name, : Yes Telehealth method: video Patient verbally consented to treatment: Yes Patient verbally consented to billing insurance company: Yes Patient informed of any privacy concerns related to visit: Yes Minutes spent on Phone/Video with Pt.: 3 Assessment & Plan Assessment & Plan (1) Unexplained endometrial cells on cervical cytology: Code(s): R87.618 - Other abnormal cytological findings on specimens from cervix uteri Category: Medical Plan: Discussed with the patient the results of the Pap smear showing endometrial cells, recommended endometrial sampling. The patient is schedule for hysteroscopy D&C possible polypectomy/myomectomy on 10/30. All questions answered, the patient verbalized understanding \ I spent a total of 20 minutes reviewing the chart, talking to the patient via video and documenting in the medical record. Coding Level of Care Code Tele Est Pt Level 3 (09332) Diagnoses Unexplained endometrial cells on cervical cytology R87.618
== END 2025-10-26 11:35 | disposition home or self-care (01) ==
LOC: HO.HWS 11:12
PROVIDERS: PCP Internal Medicine; Visit Provider Obstetrics & Gynecology
DX: R87.618 Other abnormal cytological findings on specimens from cervix uteri (principal)
CPT/HCPCS: 99213

== ENCOUNTER 2025-10-30 06:52 | Day surgery (SDC) | payer OTHER, SELFPAY ==
--- NOTE | 2025-10-27 09:18 | HO.ANESPROP2 ---
Documented by User: Yasmine Tucker NP 10/27/25 09:18 HPI - Anesthesia Eval Consult details Narrative: 50yo F for D&C Hysteroscopy,possible myomectomy,possible polypectomy PMFSH Active Problems Active Problems: All Active Problems Ovarian cyst (Acute) Constipation (Acute) Hypertension (Acute) Unexplained endometrial cells on cervical cytology (Acute) Heavy menstrual bleeding (Acute) Annual physical exam (Acute) Shoulder pain, right (Acute) Allergic reaction (Acute) Ear congestion (Acute) Abnormal uterine bleeding (Acute) Cervical high risk HPV (human papillomavirus) test positive (Acute) COVID-19 virus infection (Acute) Family history of breast cancer (Acute) Breast calcification, left (Acute) Migraine (Acute) GERD (gastroesophageal reflux disease) (Acute) Hypercholesterolemia (Acute) Hypothyroid (Acute) Obesity (BMI 30-39.9) (Acute) Past Medical History Medical History REN III (cervical intraepithelial neoplasia grade III) with severe dysplasia Ovarian cyst Colon cancer screening Blood pressure elevated without history of HTN Unexplained endometrial cells on cervical cytology Heavy menstrual bleeding Abnormal Pap smear of cervix Family history of breast cancer Breast calcification, left BRCA negative Obesity (BMI 30-39.9) Hypothyroid Hypercholesterolemia Insomnia GERD (gastroesophageal reflux disease) HPV test positive Vitamin D deficiency Polycystic kidney disease Migraine Family History Family History Father Cancer Diabetes Hypertension Mother Kidney disease Hypertension Breast cancer, Onset Age: 70 Sister Colon cancer, Onset Age: 40 Maternal Aunt Breast cancer Kidney disease Throat cancer Gastric cancer Maternal Aunt Breast cancer Family history of problems with anesthesia: No Surgical History Surgical History Hx of dilation and curettage Hx of colonoscopy History of Problems with Anesthesia: No Social History Social History Household Members: Significant Other Housing: House Are you a primary women's health care nurse practitioner to a significant other at home: No Do you presently have visiting nurse or other home services: No Alcohol intake: never Patient Tobacco Use Status: Never used Tobacco Tobacco use type: Cigarette e-Cigarette/Vaping Use: Never Used Second Hand Smoke Exposure: No Have you been hit, kicked, punched, or otherwise hurt by someone within the past year? If so, by whom?: No Are you DNR?: No Advance Directives: No Advance Directives Information Provided: Yes FDLMP: bleeding since Aug service: No Current occupational status: employed Current occupation: [employer] Sexual orientation: Straight/Heterosexual Gender identity: Female Cognitive needs: No Hearing needs: No Vision needs: Yes (Glasses) Meds Allergies Allergy/AdvReac Type Severity Reaction Status Date / Time bee pollen (BEE STINGS) Allergy Severe ANAPHYLAXIS Verified 10/30/25 07:11 kiwi (KIWI) Allergy Intermediate HIVES Verified 10/30/25 07:11 Home Medications ?Medication ?Instructions ?Recorded ?Confirmed ?Last Taken ?Type multivitamin 1 tab PO DAILY 11/30/23 10/30/25 Unknown History Assessment and Plan Assessment Anesthesia Assessment: Chart Reviewed Final Anesthetic Review Family History of Problems with Anesthesia: No History of Problems with Anesthesia: No Documented by User: Lucia Cobian MD 10/30/25 08:11 [facility] Past Medical History Medical History REN III (cervical intraepithelial neoplasia grade III) with severe dysplasia Ovarian cyst Colon cancer screening Blood pressure elevated without history of HTN Unexplained endometrial cells on cervical cytology Heavy menstrual bleeding Abnormal Pap smear of cervix Family history of breast cancer Breast calcification, left BRCA negative Obesity (BMI 30-39.9) Hypothyroid Hypercholesterolemia Insomnia GERD (gastroesophageal reflux disease) HPV test positive Vitamin D deficiency Polycystic kidney disease Migraine Family History Family History Father Cancer Diabetes Hypertension Mother Kidney disease Hypertension Breast cancer, Onset Age: 70 Sister Colon cancer, Onset Age: 40 Maternal Aunt Breast cancer Kidney disease Throat cancer Gastric cancer Maternal Aunt Breast cancer Surgical History Surgical History Hx of dilation and curettage Hx of colonoscopy Social History Social History Household Members: Significant Other Housing: House Are you a primary women's health care nurse practitioner to a significant other at home: No Do you presently have visiting nurse or other home services: No Alcohol intake: never Patient Tobacco Use Status: Never used Tobacco Tobacco use type: Cigarette e-Cigarette/Vaping Use: Never Used Second Hand Smoke Exposure: No Have you been hit, kicked, punched, or otherwise hurt by someone within the past year? If so, by whom?: No Are you DNR?: No Advance Directives: No Advance Directives Information Provided: Yes FDLMP: bleeding since Aug service: No Current occupational status: employed Current occupation: [employer] Sexual orientation: Straight/Heterosexual Gender identity: Female Cognitive needs: No Hearing needs: No Vision needs: Yes (Glasses) Meds Allergies Allergy/AdvReac Type Severity Reaction Status Date / Time bee pollen (BEE STINGS) Allergy Severe ANAPHYLAXIS Verified 10/30/25 07:11 kiwi (KIWI) Allergy Intermediate HIVES Verified 10/30/25 07:11 Home Medications ?Medication ?Instructions ?Recorded ?Confirmed ?Last Taken ?Type multivitamin 1 tab PO DAILY 11/30/23 10/30/25 Unknown History Exam Airway Mallampati Class: II TM Dist: >3cm Neck ROM: Full Heart: rrr Lungs: cta Assessment and Plan Assessment Anesthesia Assessment: Anesthesia Plan Discussed Final Anesthetic Review NPO: Yes ASA Class: II Final Preanesthetic Review: No Changes in Pt Med Stat, Meds/Allgs Chart Reviewed and Consent Obtained/Reviewed Patient Risk: Low Procedure Risk: Low Anesthetic Plan Anesthetic Plan: GA Disposition: Standard PACU
[2025-10-27 15:27] VITALS: BMI 33.1
[2025-10-30] VITALS (10 sets, daily range): BP systolic 117–141; BP diastolic 75–96; PULSE 68–98; RESP 10–18; TEMP 36.2–36.7; O2SAT 98–100; BMI 33.8
[2025-10-30 07:14] LABS: UPreg QC Valid YES
[2025-10-30] MEDS: Lactated Ringers 1,000 ML 100 ML IVCONT (07:22)
--- NOTE | 2025-10-30 08:23 | MHC.SHP ---
Pre-Procedural Eval Section A - 24 Hr Update-Section A only Date of Service: 10/30/25 The patient is an INPATIENT: No Changes since office visit: No Cold of Flu in the past 2 weeks, No New Medical Problems, No Changes in Medication and No Patient answered all questions The patient has been examined within 24 hours of the surgical procedure. The History & Physical has been completed within 30 days and I have reviewed it.: Yes Section B - Complete if H&P > 30 days Chief Complaint: Abnormal uterine and vaginal bleeding, unspecified Allergies: Allergies Allergy/AdvReac Type Severity Reaction Status Date / Time bee pollen (BEE STINGS) Allergy Severe ANAPHYLAXIS Verified 10/30/25 07:11 kiwi (KIWI) Allergy Intermediate HIVES Verified 10/30/25 07:11 Plan Diagnosis/Plan: Unchanged I have reviewed the history and physical and performed a pertinent physical examination on my patient. No changes have occurred unless specified. Time Spent With Patient Time: Total time managing care of this patient today ____ minutes.
--- NOTE | 2025-10-30 09:01 | PM.OP ---
Brief Operative Note Date of Service: 10/30/25 Pre-op diagnosis: AUB, abnormal endometrium by ultrasound Post-op diagnosis: same (Endometrial polyp) Procedure: Hysteroscopy D&C, Polypectomy Surgeon: Gordon Ordoñez MD Anesthesia: GLMA Was an Senior Digital Designer used for this Procedure?: No Estimated blood loss (mL): 0 Pathology: other (Endometrial Scrapping. Polyp) Condition: stable Disposition: PACU
--- NOTE | 2025-10-30 09:01 | W.PM.OPN ---
Operative Note Operative Note Date of Service: 10/30/25 Narrative: Preop Diagnosis: AUB, abnormal endometrium by US Operation: Diagnostic Hysteroscopy, Dilataion & Curettage and polypectomy Post Op Diagnosis: Endometrial Polyp QBL: Minimal Anesthesia: GLMA Surgeon: Gordon Ordoñez MD Meter Readers Supervisor: None Complication: None Pathology: Endometrial Scrapings, Endometrial polyp Procedure: The patient was put in the dorsal lithotomy position, scrubbed, and draped in the usual manner. A sterile speculum was inserted in the patient's vagina. The anterior lip of the cervix was grasped with a single tooth tenaculum. The cervix was dilated up to 5 mm, then the scope was inserted in the patient's uterus. Inspection revealed endometrial polyp. The Myosure Reach device was used; it was introduced through the operative channel and polypectomy done with no complications. The scope was then taken out from the uterine cavity, sharp curettings was carried on with minimal to moderate amount of tissues retrieved. At the end of the procedure, all instruments were taken out of the patient uterine and vaginal cavity. The single tooth tenaculum was removed and homeostasis was assured using pressure,. The patient tolerated the procedure well and was transferred to the PACU in a stable condition.
== END 2025-10-30 10:54 | disposition home or self-care (01) ==
PROVIDERS: Anesthesiology; PCP Internal Medicine; Visit Provider Obstetrics & Gynecology
PROC: 0UDB8ZZ Extraction of Endometrium, Via Natural or Artificial Opening Endoscopic (ICD-10-PCS; CPT 58558; principal; 2025-10-30 08:30)
DX: N93.9 Abnormal uterine and vaginal bleeding, unspecified (principal); N84.0 Polyp of corpus uteri; R87.618 Other abnormal cytological findings on specimens from cervix uteri; N83.209 Unspecified ovarian cyst, unspecified side; Z86.001 Personal history of in-situ neoplasm of cervix uteri; Q61.3 Polycystic kidney, unspecified; R03.0 Elevated blood-pressure reading, without diagnosis of hypertension; E66.9 Obesity, unspecified; E03.9 Hypothyroidism, unspecified; E55.9 Vitamin D deficiency, unspecified; Z85.3 Personal history of malignant neoplasm of breast; Z91.030 Bee allergy status; Z91.018 Allergy to other foods; Z98.890 Other specified postprocedural states
CPT/HCPCS: 58558; 81025; 88305; J1100; J1885; J2003; J2250; J2405; J2704; J3010

== ENCOUNTER → 2025-10-30 06:52 | Outpatient (BNV) | payer OTHER, SELFPAY | PROVIDERS: PCP Internal Medicine; Visit Provider Obstetrics & Gynecology | DX: N93.9 Abnormal uterine and vaginal bleeding, unspecified (principal) | CPT/HCPCS: 58558 ==